=== PATIENT | female | born 1950 | race Caucasian/White ===

== ENCOUNTER 2018-08-13 19:32 | Inpatient (IN) | payer MEDICARE, MEDICAID ==
[~2018-08-13] VITALS: Ht 160 cm; Wt 112.9 kg
[2018-08-13] VITALS (10 sets, daily range): BP systolic 97–132; BP diastolic 72–96
[2018-08-13] MEDS ORDERED: CALCIUM CARBONATE 500 MG (TUMS) TAB.CHEW PO PRN (20:00)
[2018-08-13] MEDS ORDERED: ONDANSETRON 4 MG/2 ML (SDV) Z0FRAN IVP PRN (20:00)
[2018-08-13] MEDS ORDERED: RX-TRAMADOL 50 MG (ULTRAM) TAB PPK#4 PO PRN (20:00)
[2018-08-13] MEDS ORDERED: diphenhydrAMINE 25 MG TAB (BENADRYL) PO PRN (20:00)
[2018-08-13] MEDS ORDERED: fentaNYL INJECTION 100 MCG/2 ML AMP IVP PRN (20:00)
[2018-08-13] MEDS ORDERED: KCL 20 MEQ TAB (K-DUR) PO ONE (20:00)
[2018-08-13] MEDS ORDERED: ACETAMINOPHEN 500 MG TAB (TYLENOL) PO PRN (20:00)
[2018-08-13] MEDS ORDERED: ALPRAZolam 0.25 MG (XANAX) TAB PO PRN (20:00)
[2018-08-13] MEDS ORDERED: ENOXAPARIN 100 MG/1 ML (LOVENOX) SYR SC SCH (20:00)
[2018-08-13] MEDS ORDERED: DOCUSATE SODIUM 100 MG (COLACE) CAP PO PRN (20:00)
[2018-08-13] MEDS ORDERED: HYDROcodone/APAP 5 MG/325 MG (LORTAB) TAB PO PRN (20:00)
[2018-08-13] MEDS ORDERED: LOPERAMIDE 2 MG (IMODIUM) CAP PO PRN (20:00)
[2018-08-13] MEDS ORDERED: FUROSEMIDE 40 MG/4 ML INJ (LASIX) IVP ONE (20:00)
[2018-08-13] MEDS ORDERED: MELATONIN 3 MG TABLET PO PRN (20:00)
--- OUTSIDE RECORDS SUMMARY | 2018-08-13 20:56 | XMS REPORT ---
Author Author Mike Dodge [facility] Address [address] [place], [place] [address] Care Team Providers Care Dinkey Engine Mechanic Name Role Phone Mike Dodge PCP Allergies and Adverse Reactions Name Reaction Notes No known allergies Plan of Treatment Planned Activity Comments Planned Date Planned Time Plan/Goal CT LUMBAR W/O CONTRAST 01/10/2017 12:00 AM Medications Active Name Start Date Estimated Completion Date SIG Comments tramadol 50 mg oral tablet take 1 tablet (50 mg) by oral route every 6 hours as needed alendronate 35 mg oral tablet take 1 tablet (35 mg) by oral route once weekly in the morning, at least 30 min before first food, beverage, or medication of day allopurinol 300 mg oral tablet take 0.5 tablet by oral route 2 times a day metoprolol succinate 50 mg oral tablet extended release 24 hr take 2 tablets (100 mg) by oral route once daily lisinopril-hydrochlorothiazide 20-25 mg oral tablet take 1 tablet by oral route once daily citalopram 40 mg oral tablet take 1 tablet (40 mg) by oral route once daily Aspir-81 81 mg oral tablet,delayed release (DR/EC) take 2 tablets by oral route daily Calcium 600 600 mg calcium (1,500 mg) oral tablet take 1 tablet by oral route daily multivitamin oral tablet take 1 tablet by oral route daily gabapentin 300 mg oral capsule take 1 capsule by oral route 2 times a day Discontinued Name Start Date Discontinued Date SIG Comments gabapentin oral 01/10/2017 Problem List Not available. Vital Signs Date Time BP-Sys(mm[Hg] BP-Magui(mm[Hg]) HR(bpm) RR(rpm) Temp WT HT HC BMI BSA BMI Percentile O2 Sat(%) 01/10/2017 3:23:00 PM 136 mmHg 82 mmHg 76 bpm 16 rpm 98.9 F 95 % Social History Name Description Comments Uses seatbelts Tobacco Unknown if ever smoked Alcohol Current some day History of Procedures Not available. Results Summary Not available. History Of Immunizations Not available. History of Past Illness Name Date of Onset Comments Radiculopathy- RT L4 Jan 10 2017 3:37PM Lumbar radiculopathy Jan 10 2017 3:23PM Payers Insurance Name Company Name Plan Name Plan Number Policy Number Policy Group Number Start Date Medicare Part B Medicare Of [place] [id number] N/A [facility] Plan of [id number] N/A History of Encounters Visit Date Visit Type Provider 01/10/2017 Office visit Mike Dodge MD
--- OUTSIDE RECORDS SUMMARY | 2018-08-13 20:56 | XMS REPORT ---
Author Author Mike Dodge [facility] Address [address] [place], [place] [address] Care Team Providers Care Security Dispatcher Name Role Phone Mike Dodge PCP Allergies [...] first food, beverage, or medication of day gabapentin oral allopurinol 300 mg oral tablet take 0.5 [...] take 1 tablet by oral route daily Problem List Not available. Vital Signs Date [...] Date of Onset Comments Radiculopathy- RT L4 El 9 2017 3:37PM Payers Insurance Name Company Name Plan Name Plan Number Policy Number Policy Group Number Start Date Medicare Part B Medicare Of [place] [id number] N/A [facility] Plan of [id number] N/A History of Encounters Visit Date Visit Type Provider 01/10/2017 Office visit Mike Dodge MD
--- OUTSIDE RECORDS SUMMARY | 2018-08-13 20:56 | XMS REPORT | Continuity of Care Document ---
Author Author [facility] Organization [facility] Address [facility] [address] [place] [address] Phone Unavailable Support Name Relationship Address Phone Dionte Wang D.O. Caregiver [address] [place] [address] VIRGEN RAMOS MD Caregiver [address] [place] [phone] Unavailable LYNN GIBBONS Next Of Kin [address] [place] [address] CELL Insurance Providers Payer Name Policy Number Subscriber Name Relationship Medicare [id number] Leigha Stephen 18 Self / Same As Patient [facility] [id number] Leigha Stephen 18 Self / Same As Patient Advance Directives Directive Response Recorded Date/Time Do you have an Advanced Directive? No 04/29/00 10:07am Advance Directives No 04/30/16 6:42pm Living Will No 04/30/16 6:42pm Health Care Proxy No 04/30/16 6:42pm Power of Split Leather Mosser for Health Care No 04/30/16 6:42pm Organ, Tissue, or Eye Donor No 04/30/16 6:42pm Do you have a signed organ donor card? No 04/29/00 10:07am Chief Complaint and Reason for Visit Chief Complaint MULTIPLE RIB FRACTURES Reason for Visit Multiple fractures of ribs of left side Problems Active Problems Medical Problem Onset Date Status Multiple fractures of ribs of left side Unknown Acute Medications Current Home Medications Medication Dose Units Route Directions Days/Qty Instructions Start Date Citalopram Hydrobromide 40 Mg 1 Tab Oral Daily 11/26/10 Calcium Carbonate/Vitamin D3* 1 Each 1 Tab Oral Daily 11/26/10 Multivitamins/Minerals 1 Ea 1 Tab Oral Daily 11/26/10 Aspirin 81 Mg 2 Tab Oral Daily 11/26/10 Alendronate Sodium 70 Mg 35 Mg Oral Weekly 11/26/10 Hctz/Lisinopril 1 Each 1 Each Oral Daily 08/07/12 Metoprolol Tartrate 50 Mg 50 Mg Oral Bedtime 08/07/12 Metoprolol Tartrate 50 Mg 50 Mg Oral Daily 08/07/12 Docusate Sodium 100 Mg 100 Mg Oral Daily 05/01/16 Gabapentin 100 Mg 100 Mg Oral Bedtime 30 05/01/16 Tramadol Hcl 50 Mg 100 Mg Oral Twice Daily As Needed 15 05/01/16 Hydrocodone/Acetaminophen 1 Each 1 Tab Oral Every 4-6 Hrs As Needed Pain as needed for Pain 05/02/16 Gabapentin 100 Mg 200 Mg Oral Bedtime 05/02/16 Past Home Medications Medication Directions Ordered Status Meloxicam 15 Mg Tablet, 1 Tab Oral Daily 11/26/10 Discontinued [Estroblend] , 1 Tab Oral Daily 11/26/10 Discontinued [Lisinop/Hctz] , 1 Tab Oral Daily 11/26/10 Discontinued Calcium Polycarbophil 625 Mg Tab, 2 Tab Oral Daily 11/26/10 Discontinued Pravastatin Sodium 20 Mg Tablet, 1 Tab Oral Daily 11/26/10 Discontinued Fluticasone Propionate 50 Mcg/Disk W Disk.w.dev, 1 Puff Inhalation Daily 28/06 Discontinued Social History Social History Problem Response Recorded Date/Time Smoking Status Former smoker 04/30/2016 6:42pm Alcohol Use none 04/30/2016 2:37pm Drug Use none 04/30/2016 2:37pm Query Response Start Date Stop Date Smoking Status Former smoker Hospital Discharge Instructions Discharge Instructions Nursing Instructions Flu Vaccine Received this Visit: No Pneumonia Vaccine Received this Visit: No Education #1 Topic: rib fx Methods: Discussion Printed Material Provided: yes Response: Verbalize understanding Recipient: Patient Patient specific education materials provided?: Yes Patient Request Electronic Discharge Instructions: No Patient Received Electronic Discharge Instructions: Yes Patient Health Summary printed/downloaded for the patient?: Yes Provider Discharge Instruction Make Appointment with:: Dr. Wang [phone] Other: FOLLOW UP APPOINTMENT THURSDAY 05/10 AT 2:45 Plan of Care Discharge Date 05/02/16 11:08am Disposition 01 HOME, INTERMEDIATE,ASSISTED LIVING Prescriptions See Medication Section Care Plan and Goals See Discharge Instructions Section Functional Status Query Response Date Recorded Janina Coma Scale Total 15 May 02, 2016 8:33am Patient Behavior Appropriate Cooperative May 02, 2016 8:33am Allergies, Adverse Reactions, Alerts Allergen Type Severity Reaction Status Last Updated NO KNOWN DRUG ALLERGIES Allergy Unknown Active 04/30/16 Immunizations Name Given Type Hx Diphtheria, Pertussis, Tetanus Vaccination Up To Date Historical Hx Influenza Vaccination No Historical Hx Pneumococcal Vaccination Yes Historical Vital Signs Acute Vital Signs Vital Response Date/Time Temperature (Fahrenheit) 97.3 degrees F (97.6 - 99.5) 05/02/2016 5:30am Temperature Source Temporal Artery 05/02/2016 5:30am Pulse Rate (adult) 63 bpm (60 - 90) 05/02/2016 5:30am Respiratory Rate 20 bpm (12 - 24) 05/02/2016 5:30am Blood Pressure 130/62 mm Hg 05/02/2016 5:30am O2 Sat by Pulse Oximetry 94 % (90 - 100) 05/02/2016 6:46am Oxygen Delivery Method 04/30/2016 5:45pm Oxygen Flow Rate 1.0 L/min 05/01/2016 11:15pm Pain Intensity 8 04/30/2016 6:42pm Pain Intensity 5 05/01/2016 8:45am Pain Location Body Site Modifier Right 05/28/2016 11:50am Pain Description 05/02/2016 5:19am Height 5 ft 2 in Weight 222 lb Body Mass Index 40.0 kg/m^2 Results Pending Laboratory Results Test Name Collection Date/Time Procedures Procedure Status Date Provider(s) CHEST X-RAY 1 VIEW FRONTAL Completed 04/30/16 CHEST X-RAY 2VW FRONTAL&LATL Completed 04/30/16 CT THORAX W/DYE Completed 04/30/16 METABOLIC PANEL TOTAL CA Completed 04/30/16 METABOLIC PANEL TOTAL CA Completed 04/30/16 COMPLETE CBC AUTOMATED Completed 04/30/16 COMPLETE CBC AUTOMATED Completed 04/30/16 ELECTROCARDIOGRAM TRACING Completed 04/30/16 ELECTROCARDIOGRAM TRACING Completed 04/30/16 MEASURE BLOOD OXYGEN LEVEL Completed 04/30/16 MEASURE BLOOD OXYGEN LEVEL Completed 04/30/16 MEASURE BLOOD OXYGEN LEVEL Completed 04/30/16 MEASURE BLOOD OXYGEN LEVEL Completed 04/30/16 MEASURE BLOOD OXYGEN LEVEL Completed 04/30/16 MEASURE BLOOD OXYGEN LEVEL Completed 04/30/16 MEASURE BLOOD OXYGEN LEVEL Completed 04/30/16 MEASURE BLOOD OXYGEN LEVEL Completed 04/30/16 MEASURE BLOOD OXYGEN LEVEL Completed 04/30/16 HYDRATE IV INFUSION ADD-ON Completed 04/30/16 THER/PROPH/DIAG INJ IV PUSH Completed 04/30/16 PT EVALUATION Completed 04/30/16 GAIT TRAINING THERAPY Completed 04/30/16 EMERGENCY DEPT VISIT Completed 04/30/16 HYDROMORPHONE INJECTION Completed 04/30/16 NORMAL SALINE SOLUTION INFUS Completed 04/30/16 LOCM 300-399MG/ML IODINE,1ML Completed 04/30/16 X-ray of chest, single view Active 04/30/[address] chest w contrast Active 04/30/16 VIRGEN RAMOS MD X-ray of chest, PA and lateral views Active 04/30/16 Dionte Wang D.O. Encounters Encounter Location Arrival/Admit Date Discharge/Depart Date Attending Provider Discharged Inpatient (obs) [place] 04/30/16 6:21pm 05/02/16 11:08am Dionte Wang D.O. Discharged Recurring [place] 04/15/16 3:59pm 05/28/16 11:08am HUGO RONDON Recent Diagnosis Multiple fractures of ribs of left side
--- OUTSIDE RECORDS SUMMARY | 2018-08-13 20:56 | XMS REPORT | Continuity of Care Document ---
Author Author [facility] Address Unknown Phone Unavailable Allergies There is no data. Medications There is no data. Problems There is no data. Procedures There is no data. Results There is no data. Encounters ACCT No. Visit Date/Time Discharge Status Pt. Type Provider Facility Loc./Unit Complaint [id number] 01/10/2017 14:35:35 01/10/2017 23:59:59 CLS Outpatient Mike Dodge
--- OUTSIDE RECORDS SUMMARY | 2018-08-13 20:56 | XMS REPORT | Continuity of Care Document ---
Author Author [facility] Organization [facility] Address [facility] [address] [place] [address] Phone Unavailable Support Name Relationship Address Phone COTY CRAIN MD Caregiver [address] [place] [address] DELTA SOW MD Caregiver [address] [place] [address] Unavailable DELTA SOW MD Caregiver [address] [place] [address] Unavailable LYNN GIBBONS Next Of Kin [address] [place] [address] CELL Insurance Providers Guarantor Leigha Stephen Address [address] [place] [address] [facility] Policy Number [id number] Subscriber's Name Alma Stephenhlbrie Aguirre Relationship 18 Self / Same As Patient Effective Date 12 Payer Medicare Policy Number [id number] Subscriber's Name Leigha Stephen Relationship 18 Self / Same As Patient Advance Directives Directive Response Recorded Date/Time Do you have an Advanced Directive? No 04/29/00 10:07am Advance Directives No 07/22/17 5:44pm Living Will No 07/22/17 5:44pm Health Care Proxy No 07/22/17 5:44pm Power of Physician Executive for Health Care No 07/22/17 5:44pm Organ, Tissue, or Eye Donor No 07/22/17 5:44pm Do you have a signed organ donor card? No 04/29/00 10:07am Problems Medical Problem Onset Date Status Multiple fractures of ribs of left side Unknown Acute Medications Current Home Medications Medication Dose Units Route Directions Days Qty Instructions Start Date Acetaminophen (Tylenol 500 Mg Tab*) 500 Mg Tablet 1,000 Mg ORAL Every 4-6 Hours Albuterol (Proair 17GM Hfa Inhaler*) 1 Puff Inh 2 Puff Inhalation Three Times Daily As Needed as needed for Wheezing 1 Inhaler INHALE 2 PUFFS Allopurinol (Allopurinol 300 Mg Tab*) 300 Mg Tablet 150 Mg ORAL Daily 15 Milligram Aspirin (Children's Aspirin 81 Mg*) 81 Mg Tablet.dr 2 Tab ORAL Daily Calcium Carbonate/Vitamin D3* (Calcium 600 + D Caplet*) 1 Each Tablet 1 Tab ORAL Twice A Day Citalopram Hydrobromide (Celexa 40 Mg Tab*) 40 Mg Tablet 1 Tab ORAL Daily Docusate Sodium (Colace 100 Mg Cap*) 100 Mg Capsule 200 Mg ORAL As Needed 30 Cap Gabapentin (Neurontin 100 Mg Cap*) 100 Mg Capsule 200 Mg ORAL Bedtime 30 Cap Lisinopril (Prinivil 40 Mg Tab*) 40 Mg Tablet 40 Mg ORAL Daily 30 Tablet 07/23/17 Loperamide Hcl (Imodium A-D) 2 Mg Capsule 2 Cap ORAL As Needed 2 CAPS PO AFTER 1ST LOOSE BM AND 1 AFTER EACH SUBSEEQUENT Loratadine (Claritin 10 Mg Tab*) 10 Mg Tablet 10 Mg ORAL Daily 30 Tablet Metoprolol Tartrate (Lopressor 50 Mg Tab) 50 Mg Tablet 50 Mg ORAL Bedtime Metoprolol Tartrate (Lopressor 50 Mg Tab) 50 Mg Tablet 50 Mg ORAL Daily Multivitamins/Minerals (Centrum) 1 Ea Tab 1 Tab ORAL Daily Naproxen Sodium (Aleve 220 Mg Tab*) 220 Mg Tablet 220 Mg ORAL Twice Daily As Needed 60 Tablet Oxygen 2 L NASAL Promethazine Hcl (Phenergan) 25 Mg Supp.rect 1 Tab ORAL Every 6 Hours As Needed as needed for Nausea Risedronate Sodium (Risedronate Sodium Dr) 35 Mg Tablet.dr 35 Mg ORAL Weekly Tramadol Hcl (Ultram 50 Mg Tab*) 50 Mg Tablet 50 Mg ORAL Every 6 To 8 Hours As Needed 15 Tablet [id number] 1 Tab ORAL Three Times Daily As Needed Past Home Medications Medication Directions Ordered Status Alendronate Sodium (Fosamax 70 Mg Tab*) 70 Mg Tablet, 35 Mg Oral Weekly Discontinued Calcium Polycarbophil (Fibercon Tablets) 625 Mg Tab, 2 Tab Oral Daily Discontinued Estroblend , 1 Tab Oral Daily Discontinued Fluticasone Propionate (Flovent Diskus 50 Mcg) 50 Mcg/Disk W Disk.w.dev, 1 Puff Inhalation Daily Discontinued Gabapentin (Neurontin 100 Mg Cap*) 100 Mg Capsule, 100 Mg Oral Bedtime Discontinued Hctz/Lisinopril (Zestoretic 20-25 Mg Tablet) 1 Each Tablet, 1 Each Oral Daily Discontinued Hydrocodone/Acetaminophen (Lortab 7.5-325 Mg Tablet) 1 Each Tablet, 1 Tab Oral Every 4-6 Hrs As Needed Pain as needed for Pain Discontinued Lisinop/Hctz , 1 Tab Oral Daily Discontinued Lisinopril/Hydrochlorothiazide (Zestoretic 20-12.5 Mg Tablet) 1 Each Tablet, 1 Tab Oral Daily Discontinued Meloxicam (Mobic 15 Mg Tab*) 15 Mg Tablet, 1 Tab Oral Daily Discontinued Pravastatin Sodium (Pravachol 20 Mg Tab*) 20 Mg Tablet, 1 Tab Oral Daily Discontinued Social History Social History Problem Response Recorded Date/Time Onset Date Status Smoking Status Former smoker 07/22/2017 5:44pm Not Applicable Not Applicable Smoking Status Start Date Stop Date Former smoker Hospital Discharge Instructions No hospital discharge instruction information available. Plan of Care Discharge Date 07/23/17 3:15pm Disposition 01 HOME, USP,ASSISTED LIVING Instructions/Education Provided Hypoxia (GEN) Prescriptions See Medication Section Functional Status Query Response Date Recorded Hartley Coma Scale Total 15 July 23, 2017 7:42am Patient Behavior Appropriate Cooperative July 23, 2017 7:42am Allergies, Adverse Reactions, Alerts Allergen Type Severity Reaction Status Last Updated NO KNOWN DRUG ALLERGIES Allergy Unknown Active 04/30/16 Immunizations Query Response on File Recorded Date/Time Hx Diphtheria, Pertussis, Tetanus Vaccination Up To Date 04/30/16 2:05pm Hx Influenza Vaccination - 201607/22/17 5:44pm Hx Pneumococcal Vaccination Yes 07/22/17 5:44pm Vital Signs Acute Vital Signs Vital Response Date/Time Temperature (Fahrenheit) 98.1 degrees F (97.6 - 99.5) 07/23/2017 2:10pm Temperature Source Oral 07/23/2017 2:10pm Pulse Rate (adult) 60 bpm (60 - 90) 07/23/2017 2:10pm Respiratory Rate 22 bpm (12 - 24) 07/23/2017 2:10pm Blood Pressure 126/83 mm Hg 07/23/2017 2:10pm O2 Sat by Pulse Oximetry 97 % (90 - 100) 07/23/2017 2:10pm Oxygen Flow Rate 2.0 L/min 07/23/2017 5:55am Pain Intensity 3 07/23/2017 9:15am Height 5 ft 4 in 07/22/2017 4:01pm Weight 229.06 lb 07/22/2017 4:01pm Body Mass Index 39.0 kg/m^2 07/22/2017 4:01pm Results Laboratory Results Test Name Result Units Flags Reference Collection Date/Time Result Date/ Time Comments B-Type Natriuretic Peptide 1157 pg/mL H 10-227 07/21/2017 12:44pm 2016 1:42pm 50-75 years of age NT-proBNP values <300 pg/mL have a 99% negative predictive value for excluding acute congestive heart failure (CHF). A cutoff of 1,200 pg/mL for patients with an eGFR <60 yields a diagnostic sensitivity and specificity of 89% and 72% for acute CHF. NT-proBNP values 900 pg/mL are consistent with CHF in adults 50-75 years of age in the absence of renal failure. White Blood Count 4.7 K/uL L 4.8-10.8 07/23/2017 5:10am 07/23/2017 6: 02am Red Blood Count 4.20 M/uL 4.20-5.40 07/23/2017 5:10am 07/23/2017 6: 02am Hemoglobin 13.7 gm/dL 12.0-16.0 07/23/2017 5:10am 07/23/2017 6:02am Hematocrit 45.7 % 37.0-47.0 07/23/2017 5:10am 07/23/2017 6:02am Mean Corpuscular Volume 108.8 fL H 81.0-99.0 07/23/2017 5:10am 2016 6:02am Mean Corpuscular Hemoglobin 32.6 pg H 27.0-31.0 07/23/2017 5:10am 2016 6:02am Mean Corpuscular Hemoglobin Concent 30.0 g/dL 30.0-37.0 07/23/2017 5: 10am 07/23/2017 6:02am Red Cell Distribution Width 14.7 % H 11.5-14.5 07/23/2017 5:10am 2016 6:02am Platelet Count 98 K/uL L 130-400 07/23/2017 5:07/23/2017 6:02am Mean Platelet Volume 8.9 fL 7.4-10.4 07/23/2017 5:07/23/2017 6: 02am Neutrophils (%) (Auto) 50.0 % 42.2-75.2 07/23/2017 5:07/23/2017 6: 02am Lymphocytes (%) (Auto) 34.2 % 20.5-51.1 07/23/2017 5:07/23/2017 6: 02am Monocytes (%) (Auto) 10.6 % H 1.7-9.3 07/23/2017 5:07/23/2017 6: 02am Eosinophils (%) (Auto) 4.3 % H 0-3 07/23/2017 5:07/23/2017 6:02am Basophils (%) (Auto) 0.9 % 0.0-1.0 07/23/2017 5:07/23/2017 6:02am Neutrophils # (Auto) 2.4 K/uL 2.0-6.9 07/23/2017 5:07/23/2017 6: 02am Lymphocytes # (Auto) 1.6 K/uL 1.2-3.4 07/23/2017 5:07/23/2017 6: 02am Monocytes # (Auto) 0.5 K/uL 0.1-0.6 07/23/2017 5:07/23/2017 6: 02am Eosinophils # (Auto) 0.2 K/uL 0.0-0.7 07/23/2017 5:07/23/2017 6: 02am Basophils # (Auto) 0.0 K/uL 0.0-0.2 07/23/2017 5:07/23/2017 6: 02am Random Glucose 96 mg/dL 70-110 07/23/2017 5:07/23/2017 6:19am Blood Urea Nitrogen 25 mg/dL H 7-18 07/23/2017 5:07/23/2017 6:19am Creatinine 0.9 mg/dL 0.55-1.02 07/23/2017 5:07/23/2017 6:19am Sodium Level 142 mEq/L 136-145 07/23/2017 5:07/23/2017 6:19am Potassium Level 3.8 mEq/L 3.5-5.0 07/23/2017 5:07/23/2017 6:19am Chloride Level 103 mEq/L 98-107 07/23/2017 5:07/23/2017 6:19am Carbon Dioxide Level 35.7 mEq/L H 21-32 07/23/2017 5:07/23/2017 6: 19am Calcium Level 8.9 mg/dL 8.8-10.5 07/23/2017 5:07/23/2017 6:19am Total Protein 6.4 gm/dL 6.4-8.2 07/23/2017 5:07/23/2017 6:19am Albumin 2.8 gm/dL L 3.4-5.0 07/23/2017 5:07/23/2017 6:19am Total Bilirubin 0.45 mg/dL 0.00-1.00 07/23/2017 5:07/23/2017 6: 19am Aspartate Amino Transf (AST/SGOT) 37 U/L 15-37 07/23/2017 5:2016 6:19am Alanine Aminotransferase (ALT/SGPT) 31 U/L 12-78 07/23/2017 5: 6:19am Total Alkaline Phosphatase 55 U/L 46-116 07/23/2017 5:07/23/2017 6 :19am Glomerular Filtration Rate Calc 62.6 mL/min 07/23/2017 5:2016 6:19am Procedures Procedure Status Date Provider(s) TTE WDOPPLER COMPLETE Completed 07/15/17 ROUTINE VENIPUNCTURE Completed 06/09/17 CHEST X-RAY 2VW FRONTAL&LATL Completed 06/09/17 METABOLIC PANEL TOTAL CA Completed 06/09/17 ASSAY OF NATRIURETIC PEPTIDE Completed 06/09/17 COMPLETE CBC AUTOMATED Completed 06/09/17 HT MUSCLE IMAGE SPECT MULT Completed 06/18/17 CARDIOVASCULAR STRESS TEST Completed 06/18/17 TC99M TETROFOSMIN Completed 06/18/17 REGADENOSON INJECTION Completed 06/18/17 ROUTINE VENIPUNCTURE Completed 07/21/17 METABOLIC PANEL TOTAL CA Completed 07/21/17 ASSAY OF NATRIURETIC PEPTIDE Completed 07/21/17 X-ray of chest, PA and lateral views Completed 06/09/17 DAKOTA AUGUSTINE Myocardial SPECT multiple studies Completed 06/18/17 DAKOTA AUGUSTINE Two dimensional echocardiography with M-mode and color flow imaging Completed 07/15/17 DAKOTA AUGUSTINE X-ray of chest, PA and lateral views Completed 07/22/[address] chest w contrast Completed 07/23/17 DELTA SOW MD Encounters Encounter Location Arrival/Admit Date Discharge/Depart Date Attending Provider Discharged Inpatient (obs) [place] 07/22/17 3:22pm 07/23/17 3:15pm DELTA SOW MD Registered [facility] 07/21/17 12:30pm DAKOTA AUGUSTINE Registered [facility] 07/15/17 9:26am DAKOTA AUGUSTINE Registered [facility] 06/18/17 7:14am DAKOTA AUGUSTINE Registered [facility] 06/09/17 2:33pm DAKOTA AUGUSTINE
--- OUTSIDE RECORDS SUMMARY | 2018-08-13 20:56 | XMS REPORT ---
Author Author Mike Dodge [facility] Address [address] [place], [place] [address] Care Team Providers Care Litigation Partner Name Role Phone Mike Dodge PCP Allergies [...] Date Medicare Part B Medicare Of [place] [id number] N/A [facility] Plan of [id number] N/A History of Encounters Visit Date Visit Type Provider 01/10/2017 Office visit Mike Dodge MD
--- OUTSIDE RECORDS SUMMARY | 2018-08-13 20:56 | XMS REPORT | Continuity of Care Document ---
Author Author [facility] Organization [facility] Address [facility] [address] [place] [address] Phone Unavailable Support Name Relationship Address Phone Dionte Wang D.O. Caregiver [address] [place] [address] VIRGEN RAMOS MD Caregiver [address] [place] [phone] Unavailable LYNN GIBBONS Next Of Kin [address] [place] [address] CELL Insurance Providers Payer Name Policy Number Subscriber Name Relationship Medicare [id number] Leigha Stephen 18 Self / Same As Patient [facility] [id number] Leigha Stephen 18 Self / Same As Patient Advance Directives Directive Response Recorded Date/Time Do you have an Advanced Directive? No 04/29/00 10:07am Advance Directives No 04/30/16 6:42pm Living Will No 04/30/16 6:42pm Health Care Proxy No 04/30/16 6:42pm Power of Fruit Or Nut Farmworker for Health Care No 04/30/16 6:42pm Organ, [...] Discharge Instruction Make Appointment with:: Dr. Wang [phone] Other: FOLLOW UP APPOINTMENT THURSDAY 05/10 AT 2:45 Plan of Care Discharge Date 05/02/16 11:08am Disposition 01 HOME, GROUP HOME,ASSISTED LIVING Prescriptions See Medication Section Care Plan [...] 05/01/2016 8:45am Pain Location Body Site Modifier Lateral 05/02/2016 8:33am Pain Description 05/02/2016 5:19am Height 5 ft 2 in Weight 222 lb Body Mass Index 40.0 kg/m^2 Results Pending Laboratory Results Test Name Collection Date/Time Procedures Procedure Status Date Provider(s) X-ray of chest, single view Active 04/30/[address] chest w contrast Completed 04/30/16 VIRGEN RAMOS MD X-ray of chest, PA and lateral views Active 04/30/16 Dionte Wang D.O. Encounters Encounter Location Arrival/Admit Date Discharge/Depart Date Attending Provider Discharged Inpatient [place] 04/30/16 6:21pm 05/02/16 11:08am Dionte Wang D.O. Registered Recurring [place] 04/15/16 3:59pm HUGO RONDON Recent Diagnosis Multiple fractures of ribs of left side
[2018-08-13] MEDS ORDERED: DILTIAZEM 125 MG/25 ML IV (CARDIZEM) IV ONE (21:14)
[2018-08-13] MEDS: GABAPENTIN 100 MG (NEURONTIN) CAP PO SCH (22:00)
[2018-08-13] MEDS: DILTIAZEM INJECTION 125 MG in NS (IVPB) 100 ML IV SCH ×2 (22:00→22:04)
[2018-08-13] MEDS: NS (IVPB) 100 ML ONE (22:06)
[2018-08-13] MEDS ORDERED: RT-ALBUTEROL SULF 2.5 MG/3 ML PRE-MIX VIAL INH PRN (22:30)
[2018-08-14] VITALS (57 sets, daily range): BP systolic 87–140; BP diastolic 41–109
[2018-08-14] MEDS: NS (IVPB) 100 ML ONE (01:57)
[2018-08-14] MEDS ORDERED: DIGOXIN 0.25 MG/ML (LANOXIN) 2 ML AMP ONE (03:30)
[2018-08-14] MEDS ORDERED: ALBUMIN 5% 12.5 GM/250 ML 250 ML IV ONE ×2 (03:30→04:45)
[2018-08-14] MEDS ORDERED: DIGOXIN 0.25 MG/ML (LANOXIN) 2 ML AMP IV ONE ×5 (03:45→12:00)
[2018-08-14 04:14] LABS: BASOPHILS % (AUTO) 1 % (0-10); EOSINOPHILS % (AUTO) 0 % (0-10); HEMATOCRIT 41 % (35-52); HEMOGLOBIN 12.8 G/DL (11.5-16.0); LYMPHOCYTES # (AUTO) 1.5 X 10^3 (1.0-4.0); LYMPHOCYTES % (AUTO) 23 % (12-44); MEAN CORPUSCULAR HEMOGLOBIN 34 PG (25-34); MEAN CORPUSCULAR HGB CONC 32 G/DL (32-36); MEAN CORPUSCULAR VOLUME 107 FL (80-99); MEAN PLATELET VOLUME 11.9 FL (7.4-10.4); MONOCYTES # (AUTO) 1.1 X 10^3 (0.0-1.0); MONOCYTES % (AUTO) 17 % (0-12); NEUTROPHILS # (AUTO) 3.7 X 10^3 (1.8-7.8); NEUTROPHILS % (AUTO) 59 % (42-75); PLATELET COUNT 119 10^3/uL (130-400); RED CELL DISTRIBUTION WIDTH 14.5 % (10.0-14.5); WHITE BLOOD COUNT 6.3 10^3/uL (4.3-11.0)
[2018-08-14 04:42] LABS: ALBUMIN 3.5 GM/DL (3.2-4.5); CALCIUM 9.5 MG/DL (8.5-10.1); CREATININE SERUM 1.08 MG/DL (0.60-1.30); MAGNESIUM 1.7 MG/DL (1.8-2.4); PHOSPHORUS 5.4 MG/DL (2.3-4.7); POTASSIUM 4.3 MMOL/L (3.6-5.0); TOTAL PROTEIN 6.5 GM/DL (6.4-8.2)
[2018-08-14] MEDS ORDERED: ENOXAPARIN 60 MG/0.6 ML (LOVENOX) SYR SC SCH (04:45)
--- NOTE | 2018-08-14 05:21 | NUR ---
0129 - Talked with EICU about the patient's low blood pressures. Cardizem drip turned down at this time and continue to monitor. 0330 - Discussed with EICU about the patient's rhythm not slowing down, blood pressure are better. Orders received. 0452 - EICU called and requested that the cardizem be turned back up to 5mg at this time.
[2018-08-14] MEDS: POTASSIUM CL 10MEQ/50ML IVPB 50 ML IV SCH (05:27)
[2018-08-14] MEDS: MAGNESIUM 1 GM/100 ML IVPB 100 ML IV SCH ×3 (05:28→06:11)
[2018-08-14] MEDS: KCL 20 MEQ TAB (K-DUR) PO SCH ×2 (05:28→06:28)
[2018-08-14] MEDS: MAGNESIUM 1 GM/100 ML IVPB IV SCH ×4 (06:21→09:46)
[2018-08-14] MEDS ORDERED: FUROSEMIDE 40 MG/4 ML INJ (LASIX) IVP SCH (07:00)
--- NOTE | 2018-08-14 07:11 | Diagnostic Imaging Report ---
Indication: Congestive heart failure Portable chest 3:54 AM There is cardiomegaly. There is central vascular congestion. There are postop changes from median sternotomy. There is dual-chamber pacemaker. Impression: Cardiomegaly with pulmonary venous congestion. Dictated by: Dictated on workstation # [id number]
--- NOTE | 2018-08-14 08:08 | Consultation-Cardiology ---
HPI-Cardiology Cardiology Consultation: Date of Consultation 08/14/18 Time Seen by a Provider: 07:35 Date of Admission Attending Physician Deanna Wright DO Admitting Physician Consulting Physician ANDRES CANO MD, MA, FACP, FACC, [facility], CCDS Physician requesting consult: Dr Wright HPI: Chief Complaint: Reason for consultation: A Fib with RVR, edema, h/o TOF repair HPI: 68 yo woman with depression and suicidal ideation seen in [place] ER for admission to [facility] and noted to have A Fib with RVR and gen edema. Was sent to this hosp for further eval. Reports chronic shortness of breath and chronically on supple oxygen. Notes some increase in shortness of breath lately. Had chronic leg swelling that has increased lately. Denies cp or palp or syncope. Reports a h/o A Fib and h/o pacemaker placement in [place] (either [place] or [place], according to her) Review of Systems-Cardiology Review of Systems Constitutional: malaise, tiredness; No weight loss, No weight gain Eyes: No vision change Ears/Nose/Throat: No ear discharge, No nasal drainage, No recent hearing loss Respiratory: As described under HPI Cardiovascular: As described under HPI Gastrointestinal: No constipation, No diarrhea, No nausea, No vomiting Genitourinary: No dysuria, No hematuria, No urine frequency changes Musculoskeletal: back pain (chornic) Skin: No rash, No ulcerations Psychiatric/Neurological: No seizure, No focal weakness, No syncope Hematologic: No bleeding abnormalities VUI-Hrdqgf-Mtkglx Hx Patient Social History Alcohol Use: Denies Use Recreational Drug Use: No Smoking Status: Never a Smoker Recent Foreign Travel: No Recent Infectious Disease Expo: No Hospitalization with Isolation: Denies Physical Abuse Screen: No Sexual Abuse: No Immunizations Up To Date Date of Pneumonia Vaccine: Aug 13, 2017 Date of Influenza Vaccine: Jun 13, 2018 Past Medical History PMH As described under Assessment. Family Medical History Family Medical History: Does not report fam h/o early CAD or SCD Allergies and Home Medications Allergies Coded Allergies: No Known Drug Allergies (Unverified , 08/13/18) Patient Home Medication List Home Medication List Reviewed: Yes Physical Exam-Cardiology Physical Exam Vital Signs/I&O 08/13/18 08/13/18 08/13/18 08/13/18 20:59 21:04 21:15 21:30 Pulse 115 127 142 129 Resp 12 24 B/P (MAP) 131/72 (91) 113/82 (92) 124/93 (103) Pulse Ox 94 98 99 O2 Delivery Nasal Cannula Nasal Cannula Nasal Cannula O2 Flow Rate 3.00 3.00 3.00 08/13/18 08/13/18 08/13/18 08/13/18 21:45 22:00 22:04 22:09 Temp 97.6 Pulse 118 134 112 Resp 05 19 19 B/P (MAP) 102/93 (96) 105/76 (86) 105/76 Pulse Ox 99 98 97 O2 Delivery Nasal Cannula Nasal Cannula Nasal Cannula Nasal Cannula O2 Flow Rate 3.00 3.00 3.00 3.00 08/13/18 08/13/18 08/13/18 08/13/18 22:09 22:15 22:30 22:45 Pulse 112 124 133 126 Resp 28 26 17 B/P (MAP) 118/93 (101) 132/82 (99) 97/77 (84) Pulse Ox 97 97 98 97 O2 Delivery Nasal Cannula Nasal Cannula Nasal Cannula O2 Flow Rate 3.00 3.00 3.00 08/13/18 08/14/18 08/14/18 08/14/18 23:00 00:00 00:02 00:30 Temp 97.4 Pulse 109 125 Resp 13 30 B/P (MAP) 116/96 (103) 124/83 (97) Pulse Ox 95 96 O2 Delivery Nasal Cannula Nasal Cannula NIV Bilevel O2 Flow Rate 3.00 3.00 08/14/18 08/14/18 08/14/18 08/14/18 00:30 01:00 01:00 02:00 Pulse 114 114 120 Resp 26 27 B/P (MAP) 101/49 (66) 123/109 (114) Pulse Ox 97 97 O2 Delivery Nasal Cannula Nasal Cannula Nasal Cannula O2 Flow Rate 3.00 3.00 3.00 08/14/18 08/14/18 08/14/18 08/14/18 03:00 04:00 04:38 04:38 Temp 96.4 Pulse 129 134 Resp 16 26 B/P (MAP) 103/60 (74) 127/63 (84) Pulse Ox 97 98 O2 Delivery Nasal Cannula Nasal Cannula Nasal Cannula O2 Flow Rate 3.00 3.00 1/11/19 08/14/18 08/14/18 08/14/18 05:00 06:00 07:30 07:33 Temp 96.9 Pulse 98 111 Resp 17 15 B/P (MAP) 109/60 (76) 102/59 (73) Pulse Ox 97 98 O2 Delivery Nasal Cannula Nasal Cannula Nasal Cannula O2 Flow Rate 3.00 3.00 3.00 08/14/18 00:00 Intake Total 50 ml Output Total 750 ml Balance -700 ml Capillary Refill : Constitutional: AAO x 3, well-developed, well-nourished HEENT: EOMI, hearing is well preserved; No xanthelasmas are seen Neck: No carotid bruit; carotid pulses are 2 + bilaterally, with good upstrokes Respiratory: No accessory muscle use; other (good bilat air entry, somewhat diminished at the bases) Cardiovascular: irregularly irregular, S1 and S2, systolic murmur (2/6 CHAYO at card base) Gastrointestinal: No tender; soft; No guarding, No rebound; audible bowel sounds Extremities: No clubbing, No cyanosis, No significant edema Neurologic/Psychiatric: oriented x 3, grossly intact, power is 5/5 both on sides Skin: No rash on exposed areas, No ulcerations on exposed areas Data Review Labs Laboratory Tests 08/14/18 03:30: White Blood Count 6.3, Red Blood Count 3.80L, Hemoglobin 12.8, Hematocrit 41, Mean Corpuscular Volume 107H, Mean Corpuscular Hemoglobin 34, Mean Corpuscular Hemoglobin Concent 32, Red Cell Distribution Width 14.5, Platelet Count 119L, Mean Platelet Volume 11.9H, Neutrophils (%) (Auto) 59, Lymphocytes (%) (Auto) 23 , Monocytes (%) (Auto) 17H, Eosinophils (%) (Auto) 0, Basophils (%) (Auto) 1, Neutrophils # (Auto) 3.7, Lymphocytes # (Auto) 1.5, Monocytes # (Auto) 1.1H, Eosinophils # (Auto) 0.0, Basophils # (Auto) 0.0, Sodium Level 144, Potassium Level 4.3, Chloride Level 100, Carbon Dioxide Level 32, Anion Gap 12, Blood Urea Nitrogen 42H, Creatinine 1.08, Estimat Glomerular Filtration Rate 51, BUN/ Creatinine Ratio 39, Glucose Level 108H, Calcium Level 9.5, Corrected Calcium 9.9, Phosphorus Level 5.4H, Magnesium Level 1.7L, Total Bilirubin 1.0, Aspartate Amino Transf (AST/SGOT) 45H, Alanine Aminotransferase (ALT/SGPT) 35, Alkaline Phosphatase 68, Total Protein 6.5, Albumin 3.5 Laboratory Tests 08/14/18 03:30 A/P-Cardiology Assessment/Admission Diagnosis Chronic A Fib with RVR H/o TOF repair in the 1970s at the [facility] (details unknown) H/o pacemaker placement in or around 2009 in [place] (followed by her software applications engineer in [place], [place]; last interrogated Jun 2018, next interrog Sep 2018) Ac on chronic CHF, probably diastolic Obesity with BMI approx 44 Chronic hypoxemia: prob obesity-hypovent. Has known MARILYNN that is treated with CPAP Depression Discussion and Recomendations * Obtain home med list * Obtain records from [place], if possible * Dilt for rate control * Apixaban for stroke prophylaxis * Diuretics for heart failure * Monitor labs * Echo * I discussed her case last night with her hospitalist, Dr Wright Clinical Quality Measures DVT/VTE Risk/Contraindication: Risk Factor Score Per Nursin RFS Level Per Nursing on Admit: 4+=Very High ANDRES CANO MD FACP FAC CCDS Aug 14, 2018 08:08
[2018-08-14] MEDS ORDERED: DILTIAZEM 180 MG (CARDIZEM CD) CAP PO ONE (08:30)
[2018-08-14] MEDS ORDERED: ASPIRIN 325 MG (5 GR) TABLET PO SCH (09:00)
[2018-08-14] MEDS ORDERED: ASPIRIN E.C. 81 MG (ECOTRIN) TAB PO ONE (09:20)
[2018-08-14] MEDS: DILTIAZEM 180 MG (CARDIZEM CD) CAP PO SCH (09:25)
[2018-08-14] MEDS ORDERED: DOCU-143 PO (09:38)
[2018-08-14] MEDS ORDERED: BUSP5TAB59 PO (09:38)
[2018-08-14] MEDS ORDERED: FURO20TA4 PO (09:38)
[2018-08-14] MEDS ORDERED: NAPR220T66 PO (09:38)
[2018-08-14] MEDS ORDERED: CALC1TAB PO (09:38)
[2018-08-14] MEDS ORDERED: TRAM-42 PO (09:38)
[2018-08-14] MEDS ORDERED: LISI40TA PO (09:38)
[2018-08-14] MEDS ORDERED: METO-451 PO (09:38)
[2018-08-14] MEDS ORDERED: ASPI-983 PO (09:38)
[2018-08-14] MEDS ORDERED: ACT35T PO (09:38)
[2018-08-14] MEDS ORDERED: ACET-2267 PO (09:38)
[2018-08-14] MEDS ORDERED: PROM25TA14 PO (09:38)
[2018-08-14] MEDS ORDERED: GABA-486 PO (09:38)
[2018-08-14] MEDS ORDERED: POLY17PO6 PO (09:38)
[2018-08-14] MEDS ORDERED: POTA10CA43 PO (09:38)
[2018-08-14] MEDS ORDERED: MULT-351 PO (09:38)
[2018-08-14] MEDS ORDERED: LOPE-145 PO (09:38)
[2018-08-14] MEDS ORDERED: CALC500T7 PO (09:38)
[2018-08-14] MEDS ORDERED: RT-ALBUINH IH (09:38)
[2018-08-14] MEDS ORDERED: ALLO300T2 PO (09:38)
[2018-08-14] MEDS ORDERED: DULO30CA3 PO (09:38)
--- NOTE | 2018-08-14 09:50 | NUR ---
UPDATED MED REC WITH MAR FROM [facility].
--- NOTE | 2018-08-14 10:52 | History & Physical-Hospitalist ---
History of Present Illness HPI/Chief Complaint CC: Atrial fibrillation with rapid ventricular response with volume overload HPI: This is a 68-year-old white female who was on track for admission to [facility] behavioral health last evening but when she presented to the ER for medical screening she was found to have heart rate of 150 with atrial fibrillation with rapid ventricular response and a known history of paroxysmal atrial fibrillation along with repair of tetralogy of fallot in 1971 with anasarca noted an elevated BNP and hypoxia prompting cardiology evaluation and management transferred to [facility] ICU. Dr. Nunez to see the patient in consultation and recommended placement of Eliquis for anticoagulation for stroke prophylaxis and maintained on Cardizem drip that has been since converted to oral Cardizem along with oral Lasix after IV Lasix with successful and diuresis. She does have dementia and she denied any history of suicidal ideation statements but she changes her story is quite frequently due to dementia. Bettina Zavala is her primary care provider in [place]. Exam Limitations: other (dementia) Date Seen 08/14/18 Time Seen by a Provider: 10:00 Attending Physician Deanna Wood DO PCP Referring Physician Date of Admission Aug 13, 2018 at 20:50 Home Medications & Allergies Home Medications Reviewed patient Home Medication Reconciliation performed by pharmacy medication reconciliations electrical equipment technician and/or nursing. Patients Allergies have been reviewed. Allergies Allergies Coded Allergies No Known Drug Allergies (Unverified08/13/18) Past Tacomtq-Akqzuc-Dyrwwv Hx Past Med/Social Hx: Reviewed Nursing Past Med/Soc Hx, Reviewed and Corrections made Patient Social History Marrital Status: Employed/Student: retired Alcohol Use: Denies Use Recreational Drug Use: No Smoking Status: Never a Smoker Physical Abuse Screen: No Sexual Abuse: No Recent Foreign Travel: No Recent Hopitalizations: No Recent Infectious Disease Expo: No Immunizations Up To Date Date of Pneumonia Vaccine: Aug 13, 2017 Date of Influenza Vaccine: Jun 13, 2018 Seasonal Allergies Seasonal Allergies: No Past Medical History Surgeries: Cardiac Respiratory: Sleep Apnea Currently Using CPAP: Yes Currently Using BIPAP: No Cardiac: Atrial Fibrillation, High Cholesterol, Hypertension Neurological: Dementia Sexually Transmitted Disease: No Female Reproductive Disorders: Denies Gastrointestinal: Chronic Constipation Musculoskeletal: Arthritis, Gout HEENT: Cataract Loss of Vision: Denies Hearing Impairment: Denies Psychosocial: Depression History of Blood Disorders: No Adverse Reaction to Blood Ocampo: No Review of Systems Constitutional: see HPI, weakness EENTM: no symptoms reported Respiratory: dyspnea on exertion, short of breath Cardiovascular: palpitations Gastrointestinal: no symptoms reported Genitourinary: no symptoms reported Musculoskeletal: no symptoms reported Skin: no symptoms reported Psychiatric/Neurological: Depressed All Other Systems Reviewed Negative Unless Noted: Yes Physical Exam Physical Exam Vital Signs Vital Signs - First Documented 08/13/18 08/13/18 08/13/18 20:59 21:15 22:04 Temp 97.6 Pulse 115 Resp 12 B/P (MAP) 131/72 (91) Pulse Ox 94 O2 Delivery Nasal Cannula O2 Flow Rate 3.00 Capillary Refill : Height, Weight, BMI Height: 5'3.00" Weight: 248lbs. 2.0oz. [id number]; 44.0 BMI Method: General Appearance: No Apparent Distress, WD/WN, Chronically ill, Obese Eyes: Bilateral Eye Normal Inspection, Bilateral Eye PERRL HEENT: PERRL/EOMI, Normal ENT Inspection, Pharynx Normal Neck: Full Range of Motion, Normal Inspection, Non Tender, Supple, Carotid Bruit Respiratory: Chest Non Tender, Normal Breath Sounds, No Accessory Muscle Use, No Respiratory Distress, Decreased Breath Sounds Cardiovascular: No Edema, No Gallop, No JVD, Normal Peripheral Pulses, Systolic Murmur, Irregularly Irregular, Tachycardia Gastrointestinal: Normal Bowel Sounds, No Organomegaly, No Pulsatile Mass, Non Tender, Soft Back: Normal Inspection, No CVA Tenderness, No Vertebral Tenderness Extremity: Normal Capillary Refill, Normal Inspection, Normal Range of Motion, Non Tender, No Calf Tenderness, No Pedal Edema Neurologic/Psychiatric: Alert, No Motor/Sensory Deficits, Normal Mood/Affect, Disoriented Skin: Normal Color, Warm/Dry Lymphatic: No Adenopathy Results Results/Procedures Labs Laboratory Tests 08/14/18 03:30 Patient resulted labs reviewed. Assessment/Plan Admission Diagnosis Assessment: Atrial fibrillation with rapid ventricular response Volume overload placed on IV Lasix Known history of paroxysmal atrial fibrillation Hypertension Obstructive sleep apnea Dementia Depression Suicidal ideation prompting Maura psych admission Plan Transfer to fourth floor Appreciate cardiology recommendations Anticoagulation Diuresis with by mouth Lasix Monitor closely Maura psych admission once medically stable Admission Status: Inpatient Order (span 2 midnights) Reason for Inpatient Admission: Atrial fibrillation with rapid ventricular response with volume overload will require cardiology consultation of 3 days of hospital stay Diagnosis/Problems Diagnosis/Problems (1) Atrial fibrillation with rapid ventricular response Status: Acute (2) Volume overload Status: Acute (3) Obstructive sleep apnea on CPAP Status: Chronic (4) Obesity Status: Chronic Qualifiers: Obesity type: due to excess calories Obesity classification: adult class 3 (BMI >= 40) Body mass index: BMI 40.0-44.9 (5) Dementia Status: Chronic Qualifiers: Dementia type: Alzheimer's disease Alzheimer's disease onset: unspecified onset Dementia behavioral disturbance: with behavioral disturbance Qualified Codes: G30.9 - Alzheimer's disease, unspecified; F02.81 - Dementia in other diseases classified elsewhere with behavioral disturbance (6) Depression Status: Acute Qualifiers: Depression Type: unspecified Qualified Codes: F32.9 - Major depressive disorder, single episode, unspecified (7) History of permanent cardiac pacemaker placement Status: Chronic (8) Requires supplemental oxygen Status: Chronic Clinical Quality Measures DVT/VTE Risk/Contraindication: Risk Factor Score Per Nursin RFS Level Per Nursing on Admit: 4+=Very High DEANNA WOOD DO Aug 14, 2018 10:52
[2018-08-14] MEDS: FUROSEMIDE 40 MG (LASIX) TAB PO SCH (17:02)
[2018-08-14] MEDS: APIXABAN 5 MG (ELIQUIS) TABLET PO SCH ×2 (19:13→19:46)
--- NOTE | 2018-08-14 19:46 | NUR ---
2100 Eliquis non administered d/t being given at 1912 by day shift.
[2018-08-14] MEDS: GABAPENTIN 100 MG (NEURONTIN) CAP PO SCH (20:57)
[2018-08-15] VITALS (18 sets, daily range): BP systolic 90–125; BP diastolic 26–77
[2018-08-15 03:48] LABS: BASOPHILS % (AUTO) 1 % (0-10); EOSINOPHILS # (AUTO) 0.1 10^3/uL (0.0-0.3); EOSINOPHILS % (AUTO) 1 % (0-10); HEMATOCRIT 40 % (35-52); HEMOGLOBIN 12.9 G/DL (11.5-16.0); LYMPHOCYTES # (AUTO) 1.2 X 10^3 (1.0-4.0); LYMPHOCYTES % (AUTO) 22 % (12-44); MEAN CORPUSCULAR HEMOGLOBIN 35 PG (25-34); MEAN CORPUSCULAR HGB CONC 32 G/DL (32-36); MEAN CORPUSCULAR VOLUME 108 FL (80-99); MEAN PLATELET VOLUME 11.2 FL (7.4-10.4); MONOCYTES # (AUTO) 0.9 X 10^3 (0.0-1.0); MONOCYTES % (AUTO) 15 % (0-12); NEUTROPHILS # (AUTO) 3.4 X 10^3 (1.8-7.8); NEUTROPHILS % (AUTO) 61 % (42-75); PLATELET COUNT 109 10^3/uL (130-400); RED BLOOD COUNT 3.73 10^6/uL (4.35-5.85); RED CELL DISTRIBUTION WIDTH 14.5 % (10.0-14.5); WHITE BLOOD COUNT 5.6 10^3/uL (4.3-11.0)
[2018-08-15 04:04] LABS: CALCIUM 8.5 MG/DL (8.5-10.1); CREATININE SERUM 1.02 MG/DL (0.60-1.30); PHOSPHORUS 4.5 MG/DL (2.3-4.7); POTASSIUM 4.2 MMOL/L (3.6-5.0)
[2018-08-15] MEDS: KCL 20 MEQ TAB (K-DUR) PO SCH ×2 (04:38→06:22)
[2018-08-15] MEDS: POTASSIUM CL 10MEQ/50ML IVPB 50 ML IV SCH (04:38)
[2018-08-15] MEDS: MAGNESIUM 1 GM/100 ML IVPB 100 ML IV SCH (04:38)
--- NOTE | 2018-08-15 05:32 | Pulmonary Consultation ---
History of Present Illness History of Present Illness Date of Consultation 08/14/18 05:26 Late note today is 08/15/18 Time Seen by Provider: 05:27 Date of Admission History of Present Illness 68yo with hx of dementia, paroxysmal Afib transferred here from [facility] secondary to afib rvr 150 directly admitted to ICU and placed on Cardizem gtt. She does have hx of Afib. Pt has also had worsening SOB. No CP, or syncope.PT is requiring 2 liters of oxygen currently secondary to pulmonary edema. I am consulted for ICU/pulmonary management. Allergies and Home Medications Allergies Coded Allergies: No Known Drug Allergies (Unverified , 08/13/18) Home Medications Acetaminophen 500 Mg Tablet, 1,000 MG PO Q4H PRN for PAIN-MILD, (Reported) Albuterol Sulfate 1 Puff Puff, 2 PUFF IH TID PRN for SHORTNESS OF BREATH, ( Reported) Allopurinol 300 Mg Tablet, 150 MG PO DAILY, (Reported) Aspirin 81 Mg Tablet.dr, 162 MG PO DAILY, (Reported) Buspirone HCl 5 Mg Tablet, 5 MG PO BID, (Reported) Calcium Carbonate 200 Mg Tab.chew, 200 MG PO TID PRN for HEARTBURN, (Reported) Calcium Carbonate/Vitamin D3 1 Each Tablet, 1 TAB PO BID, (Reported) Docusate Sodium 100 Mg Capsule, 200 MG PO DAILY PRN for CONSTIPATION-1ST LINE, ( Reported) Duloxetine HCl 30 Mg Capsule.dr, 30 MG PO 2000, (Reported) Furosemide 20 Mg Tablet, 20 MG PO Q48H, (Reported) Gabapentin 100 Mg Capsule, 200 MG PO 2000, (Reported) Lisinopril 40 Mg Tablet, 40 MG PO DAILY, (Reported) Loperamide HCl 2 Mg Capsule, PO UD PRN for DIARRHEA, (Reported) TAKE 2 CAPLETS AFTER 1ST LOOSE BM AND 1 AFTER EACH SUBSEQUENT Metoprolol Tartrate 50 Mg Tablet, 50 MG PO BID, (Reported) Multivitamin 1 Each Tablet, 1 TAB PO DAILY, (Reported) Naproxen Sodium 220 Mg Tablet, 220 MG PO BID PRN for PAIN-MILD, (Reported) Polyethylene Glycol 3350 17 Gm Powd.pack, 17 GM PO UD PRN for CONSTIPATION-2ND LINE, (Reported) Potassium Chloride 10 Meq Capsule.er, 10 MEQ PO Q48H, (Reported) Promethazine HCl 25 Mg Tablet, 25 MG PO Q6H PRN for NAUSEA/VOMITING-2ND LINE, ( Reported) Risedronate 35 Mg Tab, 35 MG PO We, (Reported) Tramadol HCl 50 Mg Tablet, 50 MG PO EVERY 6-8 HOURS PRN for PAIN-MODERATE, ( Reported) Past Njjlcyv-Gswvsi-Hvrzip Hx Past Med/Social Hx: Reviewed Nursing Past Med/Soc Hx, Reviewed and Corrections made Patient Social History Alcohol Use: Denies Use Recreational Drug Use: No Smoking Status: Never a Smoker Recent Foreign Travel: No Recent Infectious Disease Expo: No Recent Hopitalizations: No Immunizations Up To Date Date of Pneumonia Vaccine: Aug 13, 2017 Date of Influenza Vaccine: Jun 13, 2018 Seasonal Allergies Seasonal Allergies: No Past Medical History Surgeries: Yes Cardiac Respiratory: Yes Sleep Apnea Currently Using CPAP: Yes Currently Using BIPAP: No Cardiac: Yes (fallot tetralogy - repaird in 1975) Atrial Fibrillation, High Cholesterol, Hypertension Dementia : No Female Reproductive Disorders: Denies Sexually Transmitted Disease: No Genitourinary: No Gastrointestinal: No Chronic Constipation Musculoskeletal: Yes (fractured ribs) Arthritis, Gout Endocrine: No HEENT: No (wears glasses) Cataract Loss of Vision: Denies Hearing Impairment: Denies Cancer: No Psychosocial: Yes Depression Integumentary: No Blood Disorders: No Adverse Reaction/Blood Tranf: No Review of Systems Time Seen by Provider: 05:41 Constitutional: Sweats, Weakness, Malaise; No: Fever, Chills, Other Eyes: No: Pain, Vision change, Conjunctivae inflammation, Eyelid inflammation, Other, Redness ENT: No: Ear pain, Ear discharge, Nose pain, Nose discharge, Nose congestion, Mouth pain, Mouth swelling, Throat pain, Throat swelling, Other Respiratory: Cough, Dry, Shortness of breath, SOB with excertion, Wheezing; No : Hemoptysis Cardiovascular: Palpitations, Orthopnea, Paroxysmal Noc. Dyspnea Gastrointestinal: No: Nausea, Vomiting, Abdominal Pain, Diarrhea, Constipation , Melena, Hematochezia, Other Genitourinary: No Dysuria, No Frequency, No Incontinence, No Hematuria, No Retention, No Other Neurological: Weakness Sepsis Event Evaluation Height, Weight, BMI Height: 5'3.00" Weight: 248lbs. 2.0oz. [id number]; 44.0 BMI Method: Exam Exam Vital Signs Date Time Temp Pulse Resp B/P (MAP) Pulse Ox O2 Delivery O2 Flow Rate FiO2 08/15/18 05:00 99 16 113/58 (76) 96 Nasal Cannula 3.00 08/15/18 04:05 95 Nasal Cannula 3.00 08/15/18 04:00 89 28 98/72 (81) 96 Nasal Cannula 3.00 08/15/18 03:00 80 17 105/35 (58) 95 Nasal Cannula 3.00 08/15/18 02:00 103 14 108/77 (87) 94 Nasal Cannula 3.00 08/15/18 01:00 88 21 99/26 (50) 95 Nasal Cannula 3.00 08/15/18 01:00 88 08/15/18 00:00 86 27 109/50 (69) 96 Nasal Cannula 3.00 08/14/18 23:45 98.0 Nasal Cannula 3.00 08/14/18 23:20 96 Nasal Cannula 3.00 08/14/18 23:00 92 25 110/53 (72) 97 Nasal Cannula 3.00 08/14/18 22:00 91 26 114/56 (75) 97 Nasal Cannula 08/14/18 21:00 92 24 120/51 (74) 97 Nasal Cannula 3.00 08/14/18 21:00 93 22 120/51 (74) 98 Nasal Cannula 3.00 08/14/18 20:00 90 22 122/64 (83) 98 Nasal Cannula 3.00 08/14/18 19:51 98 Nasal Cannula 3.00 08/14/18 19:40 99 Nasal Cannula 3.00 08/14/18 19:30 97.7 84 12 128/52 (77) 99 Nasal Cannula 3.00 08/14/18 19:00 100 08/14/18 18:45 85 15 130/64 (86) 98 Nasal Cannula 5.00 08/14/18 18:30 88 23 125/72 (89) 99 Nasal Cannula 5.00 08/14/18 18:15 118 20 109/64 (79) 90 Nasal Cannula 5.00 08/14/18 18:00 100 17 116/51 (72) 89 Nasal Cannula 5.00 08/14/18 17:45 97 17 124/59 (80) 97 Nasal Cannula 5.00 08/14/18 17:30 77 14 109/73 (85) 98 Nasal Cannula 5.00 08/14/18 17:15 88 16 109/68 (82) 99 Nasal Cannula 5.00 08/14/18 17:00 88 105/51 (69) 98 Nasal Cannula 5.00 08/14/18 16:45 96 30 103/58 (73) 97 Nasal Cannula 5.00 08/14/18 16:30 92 38 103/48 (66) 97 Nasal Cannula 5.00 08/14/18 16:15 92 100/74 (83) 96 Nasal Cannula 5.00 08/14/18 16:00 92 116/59 (78) 96 Nasal Cannula 5.00 08/14/18 16:00 Nasal Cannula 5.00 08/14/18 15:45 71 24 101/48 (65) 97 Nasal Cannula 5.00 08/14/18 15:30 68 14 115/46 (69) 99 Nasal Cannula 5.00 08/14/18 15:15 81 28 87/41 (56) 96 Nasal Cannula 5.00 08/14/18 15:00 98 28 102/58 (73) 98 Nasal Cannula 5.00 08/14/18 14:45 79 22 111/48 (69) 97 Nasal Cannula 5.00 08/14/18 14:30 81 23 108/45 (66) 97 Nasal Cannula 5.00 08/14/18 14:15 91 13 101/51 (68) 98 Nasal Cannula 5.00 08/14/18 14:00 96 20 101/46 (64) 98 Nasal Cannula 5.00 08/14/18 13:45 82 23 101/46 (64) 97 Nasal Cannula 5.00 08/14/18 13:30 115 31 100/51 (67) 98 Nasal Cannula 5.00 08/14/18 13:15 114 36 94/47 (63) 94 Nasal Cannula 5.00 08/14/18 13:00 97 36 130/57 (81) 95 Nasal Cannula 5.00 08/14/18 13:00 108 08/14/18 12:45 109 20 140/61 (87) 95 Nasal Cannula 5.00 08/14/18 12:30 85 21 113/70 (84) 95 Nasal Cannula 5.00 08/14/18 12:15 103 18 115/66 (82) 96 Nasal Cannula 5.00 08/14/18 12:00 Nasal Cannula 3.00 08/14/18 12:00 92 16 108/67 (81) 98 Nasal Cannula 5.00 08/14/18 11:45 120 38 87/53 (64) 95 Nasal Cannula 3.00 08/14/18 11:30 90 25 115/41 (65) 93 Nasal Cannula 3.00 08/14/18 11:15 79 13 100/56 (71) 97 Nasal Cannula 3.00 08/14/18 11:00 88 30 117/49 (71) 97 Nasal Cannula 3.00 08/14/18 10:45 92 24 100/57 (71) 97 Nasal Cannula 3.00 08/14/18 10:30 105 21 116/49 (71) 96 Nasal Cannula 3.00 08/14/18 10:15 86 14 107/70 (82) 96 Nasal Cannula 3.00 08/14/18 10:00 95 20 112/63 (79) 95 Nasal Cannula 3.00 08/14/18 09:45 100 28 104/70 (81) 93 Nasal Cannula 3.00 08/14/18 09:30 97 22 104/55 (71) 97 Nasal Cannula 3.00 08/14/18 09:15 93 32 111/50 (70) 91 Nasal Cannula 3.00 08/14/18 09:00 101 25 100/62 (75) 94 Nasal Cannula 3.00 08/14/18 08:45 110 20 106/60 (75) 97 Nasal Cannula 3.00 08/14/18 08:30 96 14 95/92 (93) 97 Nasal Cannula 3.00 08/14/18 08:15 109 11 110/55 (73) 97 Nasal Cannula 3.00 08/14/18 08:00 105 14 109/68 (82) 98 Nasal Cannula 3.00 08/14/18 07:33 Nasal Cannula 3.00 08/14/18 07:30 96.9 08/14/18 07:00 103 08/14/18 07:00 103 12 96/57 (70) 97 Nasal Cannula 3.00 08/14/18 06:00 111 15 102/59 (73) 98 Nasal Cannula 3.00 I & O 08/15/18 07:00 Intake Total 1470 ml Output Total 2050 ml Balance -580 ml Height & Weight Height: 5'3.00" Weight: 248lbs. 2.0oz. [id number]; 44.0 BMI Method: General Appearance: No Apparent Distress, WD/WN, Chronically ill, Obese HEENT: PERRL/EOMI, Normal ENT Inspection, Pharynx Normal Neck: Full Range of Motion, Normal Inspection, Non Tender, Supple, Carotid Bruit Respiratory: Chest Non Tender, Normal Breath Sounds, No Accessory Muscle Use, No Respiratory Distress, Decreased Breath Sounds Cardiovascular: No Edema, No Gallop, No JVD, Normal Peripheral Pulses, Systolic Murmur, Irregularly Irregular, Tachycardia Capillary Refill: Less Than 3 Seconds Extremity: Normal Capillary Refill, Normal Inspection, Normal Range of Motion, Non Tender, No Calf Tenderness, No Pedal Edema Neurologic/Psychiatric: Alert, No Motor/Sensory Deficits, Normal Mood/Affect, Disoriented Skin: Normal Color, Warm/Dry Lymphatic: No Adenopathy Results Lab Laboratory Tests 08/14/18 03:30 08/15/18 03:05 Assessment/Plan Assessment/Plan Afib with RVR -Cardizem gtt -Cardiology consulted Chronic CHF with pulmonary edema -Cont Lasix -echo is pending mild Hypotension -monitor for now MARILYNN -CPAP therapy Obesity Dementia Depression SHAHANA GIPSON DO Aug 15, 2018 05:32
--- NOTE | 2018-08-15 05:46 | Pulmonary Progress Note ---
Subjective Time Seen by a Provider: 05:45 Subjective/Events-last exam PT is now off cardizem gtt and only requiring 3 liters of oxygen. Sepsis Event Evaluation Height, Weight, BMI Height: 5'3.00" Weight: 248lbs. 2.0oz. 112.045265se; 44.0 BMI Method: Exam Exam Vital Signs Date Time Temp Pulse Resp B/P (MAP) Pulse Ox O2 Delivery O2 Flow Rate FiO2 08/15/18 05:00 99 16 113/58 (76) 96 Nasal Cannula 3.00 08/15/18 04:05 95 Nasal Cannula 3.00 08/15/18 04:00 89 28 98/72 (81) 96 Nasal Cannula 3.00 08/15/18 03:00 80 17 105/35 (58) 95 Nasal Cannula 3.00 08/15/18 02:00 103 14 108/77 (87) 94 Nasal Cannula 3.00 08/15/18 01:00 88 21 99/26 (50) 95 Nasal Cannula 3.00 08/15/18 01:00 88 08/15/18 00:00 86 27 109/50 (69) 96 Nasal Cannula 3.00 08/14/18 23:45 98.0 Nasal Cannula 3.00 08/14/18 23:20 96 Nasal Cannula 3.00 08/14/18 23:00 92 25 110/53 (72) 97 Nasal Cannula 3.00 08/14/18 22:00 91 26 114/56 (75) 97 Nasal Cannula 08/14/18 21:00 92 24 120/51 (74) 97 Nasal Cannula 3.00 08/14/18 21:00 93 22 120/51 (74) 98 Nasal Cannula 3.00 08/14/18 20:00 90 22 122/64 (83) 98 Nasal Cannula 3.00 08/14/18 19:51 98 Nasal Cannula 3.00 08/14/18 19:40 99 Nasal Cannula 3.00 08/14/18 19:30 97.7 84 12 128/52 (77) 99 Nasal Cannula 3.00 08/14/18 19:00 100 08/14/18 18:45 85 15 130/64 (86) 98 Nasal Cannula 5.00 08/14/18 18:30 88 23 125/72 (89) 99 Nasal Cannula 5.00 08/14/18 18:15 118 20 109/64 (79) 90 Nasal Cannula 5.00 08/14/18 18:00 100 17 116/51 (72) 89 Nasal Cannula 5.00 08/14/18 17:45 97 17 124/59 (80) 97 Nasal Cannula 5.00 08/14/18 17:30 77 14 109/73 (85) 98 Nasal Cannula 5.00 08/14/18 17:15 88 16 109/68 (82) 99 Nasal Cannula 5.00 08/14/18 17:00 88 105/51 (69) 98 Nasal Cannula 5.00 08/14/18 16:45 96 30 103/58 (73) 97 Nasal Cannula 5.00 08/14/18 16:30 92 38 103/48 (66) 97 Nasal Cannula 5.00 08/14/18 16:15 92 100/74 (83) 96 Nasal Cannula 5.00 08/14/18 16:00 92 116/59 (78) 96 Nasal Cannula 5.00 08/14/18 16:00 Nasal Cannula 5.00 08/14/18 15:45 71 24 101/48 (65) 97 Nasal Cannula 5.00 08/14/18 15:30 68 14 115/46 (69) 99 Nasal Cannula 5.00 08/14/18 15:15 81 28 87/41 (56) 96 Nasal Cannula 5.00 08/14/18 15:00 98 28 102/58 (73) 98 Nasal Cannula 5.00 08/14/18 14:45 79 22 111/48 (69) 97 Nasal Cannula 5.00 08/14/18 14:30 81 23 108/45 (66) 97 Nasal Cannula 5.00 08/14/18 14:15 91 13 101/51 (68) 98 Nasal Cannula 5.00 08/14/18 14:00 96 20 101/46 (64) 98 Nasal Cannula 5.00 08/14/18 13:45 82 23 101/46 (64) 97 Nasal Cannula 5.00 08/14/18 13:30 115 31 100/51 (67) 98 Nasal Cannula 5.00 08/14/18 13:15 114 36 94/47 (63) 94 Nasal Cannula 5.00 08/14/18 13:00 97 36 130/57 (81) 95 Nasal Cannula 5.00 08/14/18 13:00 108 08/14/18 12:45 109 20 140/61 (87) 95 Nasal Cannula 5.00 08/14/18 12:30 85 21 113/70 (84) 95 Nasal Cannula 5.00 08/14/18 12:15 103 18 115/66 (82) 96 Nasal Cannula 5.00 08/14/18 12:00 Nasal Cannula 3.00 08/14/18 12:00 92 16 108/67 (81) 98 Nasal Cannula 5.00 08/14/18 11:45 120 38 87/53 (64) 95 Nasal Cannula 3.00 08/14/18 11:30 90 25 115/41 (65) 93 Nasal Cannula 3.00 08/14/18 11:15 79 13 100/56 (71) 97 Nasal Cannula 3.00 08/14/18 11:00 88 30 117/49 (71) 97 Nasal Cannula 3.00 08/14/18 10:45 92 24 100/57 (71) 97 Nasal Cannula 3.00 08/14/18 10:30 105 21 116/49 (71) 96 Nasal Cannula 3.00 08/14/18 10:15 86 14 107/70 (82) 96 Nasal Cannula 3.00 08/14/18 10:00 95 20 112/63 (79) 95 Nasal Cannula 3.00 08/14/18 09:45 100 28 104/70 (81) 93 Nasal Cannula 3.00 08/14/18 09:30 97 22 104/55 (71) 97 Nasal Cannula 3.00 08/14/18 09:15 93 32 111/50 (70) 91 Nasal Cannula 3.00 08/14/18 09:00 101 25 100/62 (75) 94 Nasal Cannula 3.00 08/14/18 08:45 110 20 106/60 (75) 97 Nasal Cannula 3.00 08/14/18 08:30 96 14 95/92 (93) 97 Nasal Cannula 3.00 08/14/18 08:15 109 11 110/55 (73) 97 Nasal Cannula 3.00 08/14/18 08:00 105 14 109/68 (82) 98 Nasal Cannula 3.00 08/14/18 07:33 Nasal Cannula 3.00 08/14/18 07:30 96.9 08/14/18 07:00 103 08/14/18 07:00 103 12 96/57 (70) 97 Nasal Cannula 3.00 08/14/18 06:00 111 15 102/59 (73) 98 Nasal Cannula 3.00 I & O 08/15/18 07:00 Intake Total 1470 ml Output Total 2050 ml Balance -580 ml Height & Weight Height: 5'3.00" Weight: 248lbs. 2.0oz. 112.697217gu; 44.0 BMI Method: General Appearance: No Apparent Distress, WD/WN, Chronically ill, Obese HEENT: PERRL/EOMI, Normal ENT Inspection, Pharynx Normal Neck: Full Range of Motion, Normal Inspection, Non Tender, Supple, Carotid Bruit Respiratory: Chest Non Tender, Normal Breath Sounds, No Accessory Muscle Use, No Respiratory Distress, Decreased Breath Sounds Cardiovascular: No Edema, No Gallop, No JVD, Normal Peripheral Pulses, Systolic Murmur, Irregularly Irregular, Tachycardia Capillary Refill: Less Than 3 Seconds Extremity: Normal Capillary Refill, Normal Inspection, Normal Range of Motion, Non Tender, No Calf Tenderness, No Pedal Edema Neurologic/Psychiatric: Alert, No Motor/Sensory Deficits, Normal Mood/Affect, Disoriented Skin: Normal Color, Warm/Dry Lymphatic: No Adenopathy Results Lab Laboratory Tests 08/14/18 03:30 08/15/18 03:05 Assessment/Plan Assessment/Plan Afib with RVR -Cardizem gtt - currently off -Cardiology consulted Chronic CHF with pulmonary edema -Cont Lasix -echo is pending mild Hypotension - improved -monitor for now MARILYNN -CPAP therapy Obesity Dementia Depression PT is off cardizem gtt and doing better. Will transfer to 4th floor with tele and continue to monitor close. SHAHANA GIPSON DO Aug 15, 2018 05:46
[2018-08-15] MEDS: FUROSEMIDE 40 MG (LASIX) TAB PO SCH (06:22)
--- NOTE | 2018-08-15 08:56 | Diagnostic Imaging Report ---
INDICATION: Atrial fibrillation RVR, elevated BNP. EXAMINATION: Chest from 08/15/2018. COMPARISON: 08/14/2018. FINDINGS: Heart is prominent but stable. Pulmonary vasculature is congested. Bibasilar infiltrates noted with findings of edema throughout both lungs. Significant change is not appreciated in the mid and upper lungs but there is increasing infiltrate at the bases. Sternotomy wires and a right pacemaker stable. IMPRESSION: 1. Increasing infiltrates at the bases. The remaining chest is stable. Dictated by: Dictated on workstation # [id number]
[2018-08-15] MEDS ORDERED: ASPIRIN E.C. 81 MG (ECOTRIN) TAB PO SCH (09:00)
[2018-08-15] MEDS: APIXABAN 5 MG (ELIQUIS) TABLET PO SCH ×2 (09:34→20:50)
[2018-08-15] MEDS: DILTIAZEM 180 MG (CARDIZEM CD) CAP PO SCH (09:35)
--- NOTE | 2018-08-15 09:42 | Physical Therapy Evaluation ---
PT Evaluation-General Medical Diagnosis Admission Date Aug 13, 2018 at 20:50 Medical Diagnosis: atrial fibrillation with RVR Onset Date: Aug 13, 2018 Therapy Diagnosis Therapy Diagnosis: limited mobility Height/Weight Height (Feet): 5 Height (Inches): 3.00 Weight (Pounds): 246 Weight (Ounces): 1.0 Precautions Precautions/Isolations: Fall Prevention Weight Bear Status Right Lower Extremity: Right Full Weight Bearing Left Lower Extremity: Left Full Weight Bearing Referral Physician: Deanna Wright DO Reason for Referral: Evaluation/Treatment Medical History Pertinent Medical History: Atrial Fib, Dementia, HTN Additional Medical History tetrology of Fallot, sleep apnea with CPAP, hypercholesterolemia, depression Current History Admit due to A-fib. Reviewed History: Yes Social History Home: Assisted Living Prior/Core FIM Prior Level of Function Therapy Code Descriptions/Definitions Functional [place] Measure: 0=Not Assessed/NA 4=Minimal Assistance 1=Total Assistance 5=Supervision or Setup 2=Maximal Assistance 6=Modified [place] 3=Moderate Assistance 7=Complete [place] Therapy Quality Codes: 6 Independent with activity with or without an assistive device 5 Patient requires set up or clean up by helper. Patient completes activity by themselves 4 Supervision or touching assist (CGA). [place] provide cues , steadying assist 3 The helper provides less than half the effort to complete the activity 2 The helper provides more than half the effort to complete the activity 1 Dependent. The helper does all the effort to complete an activity 7 Patient refused to complete or attempt activity 9 The patient did not perform the activity before the current illness or injury 88 Not attempted due to Medical conditions or safety concerns Functional Abilities and Goals: Independent: Patient completed the activities by him/herself, with or without an assistive device, with no assistance from a helper. Needed Some Help: Patient needed partial assistance from another person to complete activities. Dependent: A helper completed the activities for the patient. Unknown: Not Applicable: Bed Mobility: 7 Transfers (B,C,W/C) (FIM): 6 Gait: 6 Indoor Mobility (Ambulation): Independent Stairs: Not Applicalbe Prior Devices Use: Walker Prior Device Use: 4 wheeled walker PT Evaluation-Current Subjective Pt notes that she is short of breath. Her O2 stayed in the low 90s throughout treatment. Pt/Family Goals Return home selene Objective Patient Orientation: Person, Place, Time, Situation Problem Solving: Fair Comprehension: 6 Expression: 6 Social Interaction: 6 Problem Solvin Attachments: Oxygen, Drummond Catheter, Other-See Comments instructor decorating, pulse ox, BP ROM/Strength ROM Upper Extremities WFL ROM Lower Extremities WFL Strength Upper Extremities WFL Strength Lower Extremities WFL Integumentary/Posture Bladder Incontinence: Drummond Cath Posture Slumped posture in standing and while seated. Neuromuscular (Tone, Coordination, Reflexes) Intact Sensory Vision: Wears Glasses Hearing: Functional Hand Dominance: Right Sensation Right Upper Extremit: Intact Sensation Left Upper Extremity: Intact Sensation Right Lower Extremit: Intact Sensation Left Lower Extremity: Intact Transfers Therapy Code Descriptions/Definitions Functional [place] Measure: 0=Not Assessed/NA 4=Minimal Assistance 1=Total Assistance 5=Supervision or Setup 2=Maximal Assistance 6=Modified [place] 3=Moderate Assistance 7=Complete [place] Transfers (B, C, W/C) (FIM): 5 Scootin Rollin Supine to/from Sit: 5 Sit to/from Stand: 5 Gait Mode of Locomotion: Walk Anticipated Mode of Locomotion: Walk Distance (FIM): 1=up to 49 ft Distance: 10ft Gait Level of Assist: 5 Gait Persons Needed: 1 Gait Assistive Device: FWW Comments/Gait Description Ambulation limited due to attachments. Balance Sitting Static: Good Sitting Dynamic: Good Standing Static: Good Standing Dynamic: Good Assessment/Needs Pt showed good stability during standing and ambulation. Limited activity due to attachments. Rehab Potential: Good PT Short Term Goals Short Term Goals Time Frame: Aug 22, 2018 Transfers (B,C,W/C) (FIM): 6 Gait (FIM): 6 Distance (FIM): 3=150 ft Gait Distance Comment: 150ft Gait Level of Assist: 6 Gait Assistive Device: Walker 4 Wheeled PT Plan Problem List Problem List: Activity Tolerance, Functional Strength, Safety, Gait, Transfer Treatment/Plan Treatment Plan: Continue Plan of Care Treatment Plan: Bed Mobility, Functional Activity Angela, Functional Strength, Gait, Safety, Therapeutic Exercise Treatment Duration: Aug 22, 2018 Frequency: 5 times per week Estimated Hrs Per Day: .25 hour per day Patient and/or Family Agrees t: Yes Time/GCodes Time In: 0835 Time Out: 0900 Total Billed Treatment Time: 25 Total Billed Treatment 1, maryanc 25 JUANPABLO LOAIZA PT Aug 15, 2018 09:42
[2018-08-15] MEDS ORDERED: CALCIUM CARBONATE 200 MG PO PRN (12:00)
[2018-08-15] MEDS ORDERED: POLYETHYLENE GLYCOL 17 GM (MIRALAX) PACK PO PRN (12:00)
[2018-08-15] MEDS ORDERED: FUROSEMIDE 20 MG (LASIX) TAB PO SCH (12:00)
[2018-08-15] MEDS ORDERED: DOCUSATE SODIUM 100 MG (COLACE) CAP PO PRN (12:00)
[2018-08-15] MEDS ORDERED: PROMETHAZINE 25 MG (PHENERGAN) TAB PO PRN (12:00)
[2018-08-15] MEDS ORDERED: LOPERAMIDE 2 MG (IMODIUM) CAP PO PRN (12:00)
[2018-08-15] MEDS ORDERED: RT-ALBUTEROL SULF 2.5 MG/3 ML PRE-MIX VIAL IH PRN (12:00)
[2018-08-15] MEDS ORDERED: NON-FORMULARY MEDICATION 1 EA EA (Acetaminophen (Tylenol Extra Strength) 1,000 MG) PO PRN (12:00)
[2018-08-15] MEDS ORDERED: KCL 10 MEQ TAB (MICRO K) PO SCH (12:00)
--- NOTE | 2018-08-15 12:03 | Progress Note-Hospitalist ---
Subjective HPI/CC On Admission Date Seen by Provider: Aug 15, 2018 Time Seen by Provider: 11:45 CC: Atrial fibrillation with rapid ventricular response with volume overload HPI: This is a 68-year-old white female who was on track for admission to [facility] behavioral health last evening but when she presented to the ER for medical screening she was found to have heart rate of 150 with atrial fibrillation with rapid ventricular response and a known history of paroxysmal atrial fibrillation along with repair of tetralogy of fallot in 1971 with anasarca noted an elevated BNP and hypoxia prompting cardiology evaluation and management transferred to [facility] ICU. Dr. Nunez to see the patient in consultation and recommended placement of Eliquis for anticoagulation for stroke prophylaxis and maintained on Cardizem drip that has been since converted to oral Cardizem along with oral Lasix after IV Lasix with successful and diuresis. She does have dementia and she denied any history of suicidal ideation statements but she changes her story is quite frequently due to dementia. Bettina Zavala is her primary care provider in [place] Subjective/Events-last exam Patient is doing well Severe dementia is noted more and more the more conversations I have with her Denied any suicidal ideation currently but with her dementia it appears that that is a major issue but will need a [facility] psych screen since it has been over 48 hours since the screen was initiated last week To the senior behavioral unit at [place] once discharged from [facility] likely Edema is much improved Patient very immobile on a chronic basis Maintain on oxygen 24/7 Needs a bowel movement she reports and she received prune juice We will transfer to fourth floor today Review of Systems General: Fatigue Cardiovascular: Edema Neurological: Confusion Objective Exam Vital Signs Vital Signs Date Time Temp Pulse Resp B/P (MAP) Pulse Ox O2 Delivery O2 Flow Rate FiO2 08/15/18 13:07 112 08/15/18 13:00 98.6 20 99/57 (71) 98 Nasal Cannula 3.00 Capillary Refill : Less Than 3 Seconds General Appearance: No Apparent Distress, WD/WN, Chronically ill, Obese Respiratory: Chest Non Tender, Lungs Clear, Normal Breath Sounds, No Accessory Muscle Use, No Respiratory Distress Cardiovascular: Regular Rate, Rhythm, No Edema, No Gallop, No JVD, Normal Peripheral Pulses, Systolic Murmur Neurologic/Psychiatric: Alert, No Motor/Sensory Deficits, Normal Mood/Affect, Disoriented Skin: Normal Color, Warm/Dry Results/Procedures Lab Laboratory Tests 08/15/18 03:05 Patient resulted labs reviewed. Assessment/Plan Assessment and Plan Assess & Plan/Chief Complaint Assessment: Atrial fibrillation with rapid ventricular response now rate controlled on PO meds Volume overload placed on IV Lasix then changed to PO Known history of paroxysmal atrial fibrillation Hypertension Obstructive sleep apnea Dementia Depression Suicidal ideation prompting [facility]a psych admission Plan Transfer to fourth floor Appreciate cardiology recommendations Anticoagulation? Diuresis with by mouth Lasix Monitor closely Maura psych admission once medically stable Diagnosis/Problems Diagnosis/Problems (1) Atrial fibrillation with rapid ventricular response Status: Resolved Resolution Date/Time: 08/15/18 @ 15:25 (2) Volume overload Status: Acute (3) Obstructive sleep apnea on CPAP Status: Chronic (4) Obesity Status: Chronic Qualifiers: Obesity type: due to excess calories Obesity classification: adult class 3 (BMI >= 40) Body mass index: BMI 40.0-44.9 (5) Dementia Status: Chronic Qualifiers: Dementia type: Alzheimer's disease Alzheimer's disease onset: unspecified onset Dementia behavioral disturbance: with behavioral disturbance Qualified Codes: G30.9 - Alzheimer's disease, unspecified; F02.81 - Dementia in other diseases classified elsewhere with behavioral disturbance (6) Depression Status: Acute Qualifiers: Depression Type: unspecified Qualified Codes: F32.9 - Major depressive disorder, single episode, unspecified (7) History of permanent cardiac pacemaker placement Status: Chronic (8) Requires supplemental oxygen Status: Chronic (9) Suicide ideation Status: Acute (10) Thrombocytopenia Status: Chronic (11) Hypomagnesemia Status: Acute Clinical Quality Measures DVT/VTE Risk/Contraindication: Risk Factor Score Per Nursin RFS Level Per Nursing on Admit: 4+=Very High RODRIGO WOOD DO Aug 15, 2018 12:03
[2018-08-15] MEDS ORDERED: ACETAMINOPHEN 500 MG TAB (TYLENOL) PO PRN (12:15)
[2018-08-15] MEDS ORDERED: lisINopril 40 MG (PRINIVIL) TABLET PO SCH (12:20)
[2018-08-15] MEDS: ALLOPURINOL 100 MG (ZYLOPRIM) TAB PO SCH (12:31)
[2018-08-15] MEDS: MULTIVIT W/MINERALS TAB (THERAGRAN M) PO SCH (12:33)
[2018-08-15] MEDS ORDERED: NAPROXEN 250 MG (NAPROSYN) TABLET PO PRN (13:00)
--- NOTE | 2018-08-15 13:00 | NUR ---
REPORT RECEIVED FROM KAVYA PLASTIC SURGEON NURSE, ALERT, CALL LIGHT WITHIN REACH, DENIES PAIN OR SOB, ALEXIS PATENT WITH CLEAR YELLOW URINE, O2 ON PER NC AT 5 L, DENIES PAIN OR SOB, SALINE LOCK WITHOUT REDNESS OR SWELLING IN RIGHT HAND AND LEFT HAND, SCD'S APPLIED, LOWER LEGS EDEMATOUS, HEELS ELEVATED OFF BED
--- NOTE | 2018-08-15 15:20 | Progress Note-Cardiology ---
Cardiology SOAP Progress Note Subjective: No cp or palp or syncope or shortness of breath Objective: I&O/Vital Signs 08/15/18 08/15/18 08/15/18 08/15/18 04:00 04:05 05:00 06:00 Pulse 89 99 116 Resp 28 16 15 B/P (MAP) 98/72 (81) 113/58 (76) 102/42 (62) Pulse Ox 96 95 96 96 O2 Delivery Nasal Cannula Nasal Cannula Nasal Cannula Nasal Cannula O2 Flow Rate 3.00 3.00 3.00 3.00 08/15/18 08/15/18 08/15/18 08/15/18 07:00 07:09 07:45 08:00 Pulse 108 121 Resp 18 B/P (MAP) 92/50 (64) Pulse Ox 97 98 95 O2 Delivery Nasal Cannula Nasal Cannula Nasal Cannula O2 Flow Rate 3.00 3.00 3.00 08/15/18 08/15/18 08/15/18 08/15/18 08:00 09:00 10:00 11:00 Pulse 105 109 101 121 Resp 18 19 19 11 B/P (MAP) 111/40 (63) 103/42 (62) 118/64 (82) 125/71 (89) Pulse Ox 97 93 97 97 O2 Delivery Nasal Cannula Nasal Cannula Nasal Cannula Nasal Cannula O2 Flow Rate 3.00 3.00 3.00 3.00 08/15/18 08/15/18 08/15/18 08/15/18 12:00 12:00 13:00 13:07 Temp 98.6 Pulse 96 101 112 Resp 19 20 B/P (MAP) 125/49 (74) 99/57 (71) Pulse Ox 96 98 98 O2 Delivery Nasal Cannula Nasal Cannula Nasal Cannula O2 Flow Rate 3.00 5.00 3.00 08/15/18 00:00 Intake Total 570 ml Output Total 1250 ml Balance -680 ml Weight (Pounds): 246 Weight (Ounces): 1.0 Weight (Calculated Kilograms): 111.813689 Constitutional: AAO x 3, well-developed, well-nourished Respiratory: No accessory muscle use; other (good bilat air entry, somewhat diminished at the bases) Cardiovascular: irregularly irregular, S1 and S2, systolic murmur (2/6 CHAYO at card base) Gastrointestional: No tender; soft; No guarding, No rebound; audible bowel sounds Extremities: No clubbing, No cyanosis, No significant edema Neurologic/Psychiatric: oriented x 3, grossly intact, power is 5/5 both on sides Skin: No rash on exposed areas, No ulcerations on exposed areas Results/Procedures: Labs Laboratory Tests 08/15/18 03:05: White Blood Count 5.6, Red Blood Count 3.73L, Hemoglobin 12.9, Hematocrit 40, Mean Corpuscular Volume 108H, Mean Corpuscular Hemoglobin 35H, Mean Corpuscular Hemoglobin Concent 32, Red Cell Distribution Width 14.5, Platelet Count 109L, Mean Platelet Volume 11.2H, Neutrophils (%) (Auto) 61, Lymphocytes (%) (Auto) 22 , Monocytes (%) (Auto) 15H, Eosinophils (%) (Auto) 1, Basophils (%) (Auto) 1, Neutrophils # (Auto) 3.4, Lymphocytes # (Auto) 1.2, Monocytes # (Auto) 0.9, Eosinophils # (Auto) 0.1, Basophils # (Auto) 0.0, Sodium Level 144, Potassium Level 4.2, Chloride Level 98, Carbon Dioxide Level 34H, Anion Gap 12, Blood Urea Nitrogen 36H, Creatinine 1.02, Estimat Glomerular Filtration Rate 54, BUN/ Creatinine Ratio 35, Glucose Level 97, Calcium Level 8.5, Phosphorus Level 4.5, Magnesium Level 2.0 Laboratory Tests 08/14/18 03:30 08/15/18 03:05 A/P: Assessment: Chronic A Fib with RVR, better controlled after addition of long-acting CCB to her chronic regimen of beta-blockers H/o TOF repair in the 1970s at the [facility] (details unknown) H/o pacemaker placement in or around 2009 in [place] (followed by her executive assistant in [place], [place]; last interrogated Jun 2018, next interrog Sep 2018) Pulmonary hypertension. Echo of 08/15/18 shows PASP 55 mmHg Ac on chronic CHF, diastolic. Echo of 08/15/18 shows LVEF 60-65% Obesity with BMI approx 44 Chronic hypoxemia: prob obesity-hypovent. Has known MARILYNN that is treated with CPAP Depression Plan: * Echo results noted above * D/c lisinopril to allow more room in bp. KIMI-inhib/ARB are not mandatory because LVEF is normal * We reviewed her CV issues with her and answered questions * We reviewed the rationale of med changes, including the addition of OAC * I discussed her case with Dr Wright yesterday ANDRES CANO MD FACP FAC CCDS Aug 15, 2018 15:20
[2018-08-15] MEDS ORDERED: GABAPENTIN 100 MG (NEURONTIN) CAP PO SCH (20:00)
[2018-08-15] MEDS: DULoxetine 30 MG (CYMBALTA) CAP PO SCH (20:48)
[2018-08-15] MEDS: GABAPENTIN 100 MG (NEURONTIN) CAP PO SCH (20:49)
[2018-08-15] MEDS: busPIRone 5 MG (BUSPAR) TAB PO SCH (20:51)
[2018-08-15] MEDS: meTOprolol TARTRATE 50 MG (LOPRESSOR) TAB PO SCH (20:51)
[2018-08-15] MEDS ORDERED: CALCIUM CARB + VIT D 600 MG (CALCARB + D) TAB PO SCH (21:00)
[2018-08-16 08:00] VITALS: BP 100/54
[2018-08-16] MEDS: APIXABAN 5 MG (ELIQUIS) TABLET PO SCH ×2 (08:47→22:07)
[2018-08-16] MEDS: MULTIVIT W/MINERALS TAB (THERAGRAN M) PO SCH (08:47)
[2018-08-16] MEDS: meTOprolol TARTRATE 50 MG (LOPRESSOR) TAB PO SCH ×2 (08:47→21:00)
[2018-08-16] MEDS: ASPIRIN E.C. 81 MG (ECOTRIN) TAB PO SCH (08:49)
[2018-08-16] MEDS: ALLOPURINOL 100 MG (ZYLOPRIM) TAB PO SCH (08:50)
[2018-08-16] MEDS: CALCIUM CARB + VIT D 600 MG (CALCARB + D) TAB PO SCH ×2 (08:51→22:07)
[2018-08-16] MEDS: DILTIAZEM 180 MG (CARDIZEM CD) CAP PO SCH (08:51)
[2018-08-16] MEDS: busPIRone 5 MG (BUSPAR) TAB PO SCH ×2 (08:52→22:08)
--- NOTE | 2018-08-16 12:00 | NUR ---
URINE OUTPUT 75ML THIS SHIFT, ALEXIS FLUSHED WITHOUT DIFFICULTY WITH 30ML STERILE WATER, IVERSON NOTIFIED
--- NOTE | 2018-08-16 12:27 | Progress Note-Cardiology ---
Cardiology SOAP Progress Note Subjective: No cp or palp or syncope or shortness of breath Objective: I&O/Vital Signs 08/16/18 08/16/18 08/16/18 01:00 07:10 09:00 Pulse 69 69 Pulse Ox 95 O2 Delivery Nasal Cannula O2 Flow Rate 3.00 08/16/18 00:00 Intake Total 350 ml Output Total 325 ml Balance 25 ml Weight (Pounds): 250 Weight (Ounces): 4.0 Weight (Calculated Kilograms): 113.915037 Constitutional: AAO x 3, well-developed, well-nourished Respiratory: No accessory muscle use; other (good bilat air entry, somewhat diminished at the bases) Cardiovascular: irregularly irregular, S1 and S2, systolic murmur (2/6 CHAYO at card base) Gastrointestional: No tender; soft; No guarding, No rebound; audible bowel sounds Extremities: No clubbing, No cyanosis, No significant edema Neurologic/Psychiatric: oriented x 3, grossly intact, power is 5/5 both on sides Skin: No rash on exposed areas, No ulcerations on exposed areas Results/Procedures: Labs Laboratory Tests 08/15/18 16:11: Glucometer 162H Microbiology 08/13/18 MRSA Screen - Final, Complete MRSA not isolated Laboratory Tests 08/15/18 03:05 A/P: Assessment: Chronic A Fib with RVR, better controlled after addition of long-acting CCB to her chronic regimen of beta-blockers H/o TOF repair in the 1970s at the [facility] (details unknown) H/o pacemaker placement in or around 2009 in [place] (followed by her tail puller in [place], [place]; last interrogated Jun 2018, next interrog Sep 2018) Pulmonary hypertension. Echo of 08/15/18 shows PASP 55 mmHg Ac on chronic CHF, diastolic. Echo of 08/15/18 shows LVEF 60-65% Obesity with BMI approx 44 Chronic hypoxemia: prob obesity-hypovent. Has known MARILYNN that is treated with CPAP Depression Plan: * We reviewed her CV issues with her and answered questions * We reviewed the rationale of med changes, including the addition of OAC * Ok for d/c on current card regimen. Close outpt cardiac f/u advised ANDRES CANO MD FACP FAC CCDS Aug 16, 2018 12:27
[2018-08-16] MEDS ORDERED: NS IV 1000 ML 1,000 ML IV SCH (12:45)
[2018-08-16 14:00] VITALS: BP 99/53
--- NOTE | 2018-08-16 14:30 | NUR ---
DR BLANKENSHIP INFORMED OF DARK URINE OUTPUT, ORDERS GIVEN FOR UA, NS AT 500ML HOUR TIMES 2 HOURS, AND SONOGRAM, OUTPUT THIS SHIFT 95ML, BP 99/53, PULSE 83, O2 SAT 94 PERCENT DENIES PAIN OR SOB, UP IN CHAIR WITH LEGS ELEVATED, LOWER LEGS EDEMATOUS, CALL LIGHT WITHIN REACH, O2 ON PER NC
--- NOTE | 2018-08-16 14:32 | Progress Note-Hospitalist ---
Progress Note Progress Notes/Assess & Plan Date Seen 08/16/18 Time Seen by Provider: 14:25 Assessment & Plan The patient is a 68-year-old white female who is pleasant but apparently confused. She had been admitted on 08/13 for A. fib with RVR. This has controlled rate now and she was transferred to the [facility]. The nurses report that they have concern as she is not been putting out much urine to speak of. A Drummond catheter was placed and irrigated. The return is relatively minimum and is dark and thick. It appears to be very dark old blood. A specimen will be sent to the lab. She is currently receiving a liter of IV fluids. Many recorded blood pressures have been in the 60s and low 70s for mean arterial pressures. This appears to have begun on 08/14. She had previously been taking metoprolol and this has been discontinued. Physical exam: The patient carries on a rather rambling dialogue. Lungs are clear to auscultation. CV is slow and regular. Extremities show no pedal edema. There is a minimum return in the catheter bag. This is dark red and nearly black and quite thick. A specimen will be sent to lab. Impression: Atrial fibrillation initially with RVR. 2.borderline hypotension. 3.poor urine output. Plan: UA. CBC. 1 L of IV fluids. PATRICK BLANKENSHIP MD Aug 16, 2018 14:32
[2018-08-16 15:05] LABS: BILIRUBIN,URINE NEGATIVE (NEGATIVE); CLARITY,URINE BLOODY; COLOR,URINE BROWN; GLUCOSE, URINE (UA) NEGATIVE (NEGATIVE); KETONES,URINE 1+ (NEGATIVE); LEUKOCYTE ESTERASE ,URINE 1+ (NEGATIVE); NITRITE,URINE NEGATIVE (NEGATIVE); PH,URINE 7 (5-9); PROTEIN,URINE 4+ (NEGATIVE); UROBILINOGEN,URINE NORMAL (NORMAL)
[2018-08-16 15:20] LABS: BACTERIA,URINE NEGATIVE /HPF; RBC,URINE TNTC /HPF; WBC,URINE 0-2 /HPF
[2018-08-16 15:35] LABS: BASOPHILS % (AUTO) 0 % (0-10); EOSINOPHILS % (AUTO) 0 % (0-10); HEMATOCRIT 44 % (35-52); LYMPHOCYTES # (AUTO) 1.1 X 10^3 (1.0-4.0); LYMPHOCYTES % (AUTO) 16 % (12-44); MEAN CORPUSCULAR HEMOGLOBIN 34 PG (25-34); MEAN CORPUSCULAR HGB CONC 30 G/DL (32-36); MEAN CORPUSCULAR VOLUME 113 FL (80-99); MEAN PLATELET VOLUME 11.2 FL (7.4-10.4); MONOCYTES # (AUTO) 1.1 X 10^3 (0.0-1.0); MONOCYTES % (AUTO) 15 % (0-12); NEUTROPHILS % (AUTO) 69 % (42-75); PLATELET COUNT 141 10^3/uL (130-400); RED BLOOD COUNT 3.86 10^6/uL (4.35-5.85); RED CELL DISTRIBUTION WIDTH 14.9 % (10.0-14.5); WHITE BLOOD COUNT 7.2 10^3/uL (4.3-11.0)
[2018-08-16 15:53] LABS: CALCIUM 9.5 MG/DL (8.5-10.1); CREATININE SERUM 2.04 MG/DL (0.60-1.30); POTASSIUM 5.3 MMOL/L (3.6-5.0)
[2018-08-16 15:55] VITALS: BP 100/67
[2018-08-16] MEDS: NS IV 1000 ML 1,000 ML IV SCH (16:18)
--- NOTE | 2018-08-16 16:20 | NUR ---
POTASSIUM 5.3, BUN 40, CR 2.04, LACTIC ACID, 0.87, RESULTS CALLED TO DR BLANKENSHIP, URINE OUTPUT 30 ML SINCE BOLUS, ORDERED TO CONTINUE NS AT 75ML HOUR
--- NOTE | 2018-08-16 16:20 | NUR ---
RENAL SONOGRAM DONE
--- NOTE | 2018-08-16 16:48 | Diagnostic Imaging Report ---
PROCEDURE: US Renal Bilateral. TECHNIQUE: Multiple real-time grayscale images were obtained over the kidneys in various projections bilaterally. INDICATION: Decreased urine output. Hematuria. FINDINGS: The right kidney measures 10 cm in length and the left measures 10.4 cm in length. There are no sonographic findings to suggest hydronephrosis. There is no evidence of a renal mass or findings to suggest a shadowing internal calculus. Urinary bladder could not be evaluated as this is decompressed by Drummond catheter. IMPRESSION: 1. No sonographic evidence of hydronephrosis. No sonographic demonstration of a renal mass or shadowing intrarenal calculus. Dictated by: Dictated on workstation # [id number]
[2018-08-16 19:20] VITALS: BP 86/61
[2018-08-16 21:00] VITALS: BP 97/57
[2018-08-16] MEDS: GABAPENTIN 100 MG (NEURONTIN) CAP PO SCH (22:07)
[2018-08-16] MEDS: DULoxetine 30 MG (CYMBALTA) CAP PO SCH (22:07)
[2018-08-17 00:51] VITALS: BP 101/61
[2018-08-17 04:33] VITALS: BP 128/50
--- NOTE | 2018-08-17 05:45 | NUR ---
Dr Abarca notified of high potussium orders recieved
[2018-08-17] MEDS: NS IV 1000 ML 1,000 ML IV SCH ×2 (05:58→18:34)
[2018-08-17] MEDS ORDERED: FUROSEMIDE 20 MG (LASIX) TAB PO SCH (07:00)
[2018-08-17] MEDS ORDERED: KCL 10 MEQ TAB (MICRO K) PO SCH (07:00)
[2018-08-17] MEDS: ASPIRIN E.C. 81 MG (ECOTRIN) TAB PO SCH (07:47)
[2018-08-17] MEDS: busPIRone 5 MG (BUSPAR) TAB PO SCH ×2 (07:48→20:27)
[2018-08-17] MEDS: ALLOPURINOL 100 MG (ZYLOPRIM) TAB PO SCH (07:48)
[2018-08-17] MEDS: APIXABAN 5 MG (ELIQUIS) TABLET PO SCH (07:48)
[2018-08-17] MEDS: MULTIVIT W/MINERALS TAB (THERAGRAN M) PO SCH (07:48)
[2018-08-17] MEDS: CALCIUM CARB + VIT D 600 MG (CALCARB + D) TAB PO SCH ×2 (07:49→20:27)
[2018-08-17 08:00] VITALS: BP 118/66
[2018-08-17 09:06] LABS: CALCIUM 9.1 MG/DL (8.5-10.1); CREATININE SERUM 1.9 MG/DL (0.60-1.30); POTASSIUM 5.8 MMOL/L (3.6-5.0)
--- NOTE | 2018-08-17 09:12 | Progress Note-Cardiology ---
Cardiology SOAP Progress Note Subjective: Sitting up in bed. Denies any c/o CP. Continues to c/o SOB, but feels it is better. No c/o palpitations. Objective: I&O/Vital Signs 08/17/18 08/17/18 08/17/18 08/17/18 04:33 07:00 08:00 08:18 Temp 96.7 97.6 Pulse 94 74 85 Resp 20 20 B/P (MAP) 128/50 (76) 118/66 (83) Pulse Ox 93 94 92 O2 Delivery Nasal Cannula Nasal Cannula Nasal Cannula O2 Flow Rate 5.00 5.00 5.00 08/17/18 08/17/18 12:00 13:00 Temp 96.2 Pulse 84 94 Resp 18 B/P (MAP) 112/63 (79) Pulse Ox 96 O2 Delivery Nasal Cannula O2 Flow Rate 5.00 08/17/18 00:00 Intake Total 1980 ml Output Total 225 ml Balance 1755 ml Weight (Pounds): 247 Weight (Ounces): 4.0 Weight (Calculated Kilograms): 112.343037 Constitutional: AAO x 3, well-developed, well-nourished Respiratory: No accessory muscle use; other (good bilat air entry, somewhat diminished at the bases) Cardiovascular: irregularly irregular, S1 and S2, systolic murmur (2/6 CHAYO at card base) Gastrointestional: No tender; soft; No guarding, No rebound; audible bowel sounds Extremities: No clubbing, No cyanosis, No significant edema Neurologic/Psychiatric: oriented x 3, grossly intact, power is 5/5 both on sides Skin: No rash on exposed areas, No ulcerations on exposed areas Results/Procedures: Labs Laboratory Tests 08/16/18 14:30: Urine Color BROWNH, Urine Clarity BLOODYH, Urine pH 7, Urine Specific [place] 1.020, Urine Protein 4+, Urine Glucose (UA) NEGATIVE, Urine Ketones 1+H, Urine Nitrite NEGATIVE, Urine Bilirubin NEGATIVE, Urine Urobilinogen NORMAL, Urine Leukocyte Esterase 1+H, Urine RBC (Auto) 5+H, Urine RBC TNTCH, Urine WBC 0-2, Urine Squamous Epithelial Cells NONE, Urine Crystals NONE, Urine Bacteria NEGATIVE, Urine Casts NONE, Urine Mucus NEGATIVE, Urine Culture Indicated NO 08/16/18 15:20: White Blood Count 7.2, Red Blood Count 3.86L, Hemoglobin 13.0, Hematocrit 44, Mean Corpuscular Volume 113H, Mean Corpuscular Hemoglobin 34, Mean Corpuscular Hemoglobin Concent 30L, Red Cell Distribution Width 14.9H, Platelet Count 141, Mean Platelet Volume 11.2H, Neutrophils (%) (Auto) 69, Lymphocytes (%) (Auto) 16 , Monocytes (%) (Auto) 15H, Eosinophils (%) (Auto) 0, Basophils (%) (Auto) 0, Neutrophils # (Auto) 5.0, Lymphocytes # (Auto) 1.1, Monocytes # (Auto) 1.1H, Eosinophils # (Auto) 0.0, Basophils # (Auto) 0.0, Sodium Level 141, Potassium Level 5.3H, Chloride Level 98, Carbon Dioxide Level 33H, Anion Gap 10, Blood Urea Nitrogen 40H, Creatinine 2.04H, Estimat Glomerular Filtration Rate 24, BUN/ Creatinine Ratio 20, Glucose Level 141H, Lactic Acid Level 0.87, Calcium Level 9.5 08/17/18 08:25: Sodium Level 141, Potassium Level 5.8H, Chloride Level 99, Carbon Dioxide Level 34H, Anion Gap 8, Blood Urea Nitrogen 53H, Creatinine 1.90H, Estimat Glomerular Filtration Rate 26, BUN/Creatinine Ratio 28, Glucose Level 123H, Calcium Level 9.1 08/17/18 10:26: Glucometer 97 Microbiology 08/13/18 MRSA Screen - Final, Complete MRSA not isolated Laboratory Tests 08/16/18 15:20 08/17/18 08:25 A/P: Assessment: Chronic A Fib with RVR, better controlled after addition of long-acting CCB to her chronic regimen of beta-blockers Hematuria Ac renal failure and hyperkalemia H/o TOF repair in the 1970s at the [facility] (details unknown) H/o pacemaker placement in or around 2009 in [place] (followed by her coal picker in [place], [place]; last interrogated Jun 2018, next interrog Sep 2018) Pulmonary hypertension. Echo of 08/15/18 shows PASP 55 mmHg Ac on chronic CHF, diastolic. Echo of 08/15/18 shows LVEF 60-65% Obesity with BMI approx 44 Chronic hypoxemia: prob obesity-hypovent. Has known MARILYNN that is treated with CPAP Depression Plan: * We reviewed her CV issues with her and answered questions * We reviewed the rationale of med changes, including the addition of OAC * Continue current regimen * Hyperkalemia - Kayexalate * Somewhat low blood pressure - hold BB for now, but continue CCB Physician Assessment Physician Assessment Does not report cp or palp or syncope. Notes tiredness Lungs: fair to good air entry, diminished at the bases Cor: irreg Ext: mild edema A&R * As documented in our note above that I updated (italics) and as noted below * New issues today * Monitor labs * Correct hyperkalemia * Hold Eliquis until source of hematuria identified and treated * I spoke with her and answered her questions PATSY LO Aug 17, 2018 09:12 ANDRES CANO MD FACP FAC CCDS Aug 17, 2018 13:23
[2018-08-17] MEDS ORDERED: SOD POLYSTERENE 15 GM/60 ML (KAYEXALATE) UNIT DOSE PO NR (09:30)
--- NOTE | 2018-08-17 09:50 | Progress Note-Hospitalist ---
RODRIGO WOOD DO 08/17/18 0950: Subjective HPI/CC On Admission Date Seen by Provider: Aug 17, 2018 Time Seen by Provider: 09:00 CC: Atrial fibrillation with rapid ventricular response with volume overload HPI: This is a 68-year-old white female who was on track for admission to [facility] behavioral health last evening but when she presented to the ER for medical screening she was found to have heart rate of 150 with atrial fibrillation with rapid ventricular response and a known history of paroxysmal atrial fibrillation along with repair of tetralogy of fallot in 1971 with anasarca noted an elevated BNP and hypoxia prompting cardiology evaluation and management transferred to via [facility] ICU. Dr. Nunez to see the patient in consultation and recommended placement of Eliquis for anticoagulation for stroke prophylaxis and maintained on Cardizem drip that has been since converted to oral Cardizem along with oral Lasix after IV Lasix with successful and diuresis. She does have dementia and she denied any history of suicidal ideation statements but she changes her story is quite frequently due to dementia. Bettina Zavala is her primary care provider in [place]. Subjective/Events-last exam Patient was set for discharge to [facility] unit Discharge put on hold due to hematuria and obtaining urology consultation. Continuous bladder irrigation started Creat 1.9 Maintaining IVF Review of Systems General: Fatigue Neurological: Confusion Focused Exam Lactate Level 08/16/18 15:20: Lactic Acid Level 0.87 Objective Exam Vital Signs Vital Signs Date Time Temp Pulse Resp B/P (MAP) Pulse Ox O2 Delivery O2 Flow Rate FiO2 08/17/18 08:18 92 Nasal Cannula 5.00 08/17/18 08:00 97.6 85 20 118/66 (83) Capillary Refill : Less Than 3 Seconds General Appearance: No Apparent Distress, WD/WN, Chronically ill, Obese Respiratory: Chest Non Tender, Lungs Clear, Normal Breath Sounds, No Accessory Muscle Use, No Respiratory Distress Cardiovascular: Regular Rate, Rhythm, No Edema, No Gallop, No JVD, No Murmur, Normal Peripheral Pulses Neurologic/Psychiatric: Alert, No Motor/Sensory Deficits, Normal Mood/Affect, Disoriented Results/Procedures Lab Laboratory Tests 08/16/18 15:20 08/17/18 08:25 Patient resulted labs reviewed. Assessment/Plan Assessment and Plan Assess & Plan/Chief Complaint Assessment: Atrial fibrillation with rapid ventricular response now rate controlled on PO meds Volume overload placed on IV Lasix then changed to PO Known history of paroxysmal atrial fibrillation Hypertension Obstructive sleep apnea Dementia Depression Suicidal ideation prompting [facility] admission [facility] Gross hematuria with possible clot retention Plan Keep in [facility] Appreciate cardiology recommendations Anticoagulation DC due to hematuria Diuresis with Lasix but decrease dose Monitor closely [facility] admission once medically stable NS IVF Urology consultation Diagnosis/Problems Diagnosis/Problems (1) Atrial fibrillation with rapid ventricular response Status: Resolved Resolution Date/Time: 08/15/18 @ 15:25 (2) Volume overload Status: Acute (3) Obstructive sleep apnea on CPAP Status: Chronic (4) Obesity Status: Chronic Qualifiers: Obesity type: due to excess calories Obesity classification: adult class 3 (BMI >= 40) Body mass index: BMI 40.0-44.9 (5) Dementia Status: Chronic Qualifiers: Dementia type: Alzheimer's disease Alzheimer's disease onset: unspecified onset Dementia behavioral disturbance: with behavioral disturbance Qualified Codes: G30.9 - Alzheimer's disease, unspecified; F02.81 - Dementia in other diseases classified elsewhere with behavioral disturbance (6) Depression Status: Acute Qualifiers: Depression Type: unspecified Qualified Codes: F32.9 - Major depressive disorder, single episode, unspecified (7) History of permanent cardiac pacemaker placement Status: Chronic (8) Requires supplemental oxygen Status: Chronic (9) Suicide ideation Status: Acute (10) Thrombocytopenia Status: Chronic (11) Hypomagnesemia Status: Acute (12) Renal failure Status: Acute (13) Hematuria Status: Acute (14) Hyperkalemia Status: Acute (15) Blood clot in bladder Status: Acute Clinical Quality Measures DVT/VTE Risk/Contraindication: Risk Factor Score Per Nursin RFS Level Per Nursing on Admit: 4+=Very High GANESH KERR MEDICAL STUDENT 08/17/18 1051: Subjective Subjective/Events-last exam Pt doing well Pt had hematuria that was discovered with Drummond. Pt is on anticoagulation which has not been held at this time- will hold has not had any more episodes of Afib with RVR pt repeating sentences, has history of dementia plan to send pt to [facility] unit once discharged from [facility] Objective Exam General Appearance: No Apparent Distress, WD/WN HEENT: PERRL/EOMI Respiratory: Lungs Clear, Normal Breath Sounds, No Respiratory Distress Cardiovascular: Regular Rate, Rhythm; No Irregularly Irregular Neurologic/Psychiatric: Other (rambling speech, repeating sentences) Assessment/Plan Assessment and Plan Assess & Plan/Chief Complaint Assessment: Afib with RVR - resolved Volume overload Hematuria Plan: Continue on PO lasix Hold pt's anticoagulation will continue to monitor will discharge to [facility] once medically stable RODRIGO WOOD DO Aug 17, 2018 09:50 GANESH KERR MEDICAL STUDENT Aug 17, 2018 10:51
[2018-08-17] MEDS: DILTIAZEM 180 MG (CARDIZEM CD) CAP PO SCH (10:34)
[2018-08-17] MEDS: meTOprolol TARTRATE 50 MG (LOPRESSOR) TAB PO SCH (10:34)
--- NOTE | 2018-08-17 10:42 | NUR ---
patient 2 way barbosa removed at this time and replaced with a 3 way barbosa 18 swedish catheter with CBI connected as ordered per Dr. Wright. This RN will cont to monitor this patient throughout the remainder of this shift. Normal Saline used to irrigate her bladder. Dr. Winkler will be in later to see this patient per Dr. Wright. Patient tolerated the removal/replacement of the barbosa catheter using sterile technique.
[2018-08-17 12:00] VITALS: BP 112/63
--- NOTE | 2018-08-17 12:02 | Physical Therapy Daily Note ---
PT Daily Note-Current Subjective Pt was in bed and agreed to PT. Pain Numeric Pain Scale: 0-No Pain Location: No Pain Reported Mental Status Patient Orientation: Confused Attachments: Oxygen, Drummond Catheter, IV Transfers Therapy Code Descriptions/Definitions Functional [place] Measure: 0=Not Assessed/NA 4=Minimal Assistance 1=Total Assistance 5=Supervision or Setup 2=Maximal Assistance 6=Modified [place] 3=Moderate Assistance 7=Complete [place] Therapy Quality Codes: 6 Independent with activity with or without an assistive device 5 Patient requires set up or clean up by helper. Patient completes activity by themselves 4 Supervision or touching assist (CGA). [place] provide cues , steadying assist 3 The helper provides less than half the effort to complete the activity 2 The helper provides more than half the effort to complete the activity 1 Dependent. The helper does all the effort to complete an activity 7 Patient refused to complete or attempt activity 9 The patient did not perform the activity before the current illness or injury 88 Not attempted due to Medical conditions or safety concerns Transfers (B, C, W/C) (FIM): 4 Scootin Rollin Supine to/from Sit: 5 Sit to/from Stand: 4 Bed to/from Chair: 4 Weight Bearing Right Lower Extremity: Right Full Weight Bearing Left Lower Extremity: Left Full Weight Bearing Gait Training Gait (FIM): 1 Distance (FIM): 1=up to 49 ft Distance: 5' Gait Level of Assist: 4 Gait Persons Needed: 1 Gait Assistive Device: FWW Assessment Current Status: Poor Progress Pt was in bed and was able to transfer to EOB with minimal assistance. Pt seemed confused when nurse inside sales manager was asking questions on her doctors. Pt was able to transfer with min A and FWW from EOB to recliner. Pt is now in recliner with all needs met. PT to increase activity as tolerated by patient. PT Short Term Goals Short Term Goals Time Frame: Aug 22, 2018 Transfers (B,C,W/C) (FIM): 6 Gait (FIM): 6 Distance (FIM): 3=150 ft Gait Distance Comment: 150ft Gait Level of Assist: 6 Gait Assistive Device: Walker 4 Wheeled PT Plan Treatment/Plan Treatment Plan: Continue Plan of Care Treatment Plan: Bed Mobility, Functional Activity Angela, Functional Strength, Gait, Safety, Therapeutic Exercise Treatment Duration: Aug 22, 2018 Frequency: 5 times per week Estimated Hrs Per Day: .25 hour per day Patient and/or Family Agrees t: Yes Time/GCodes Time In: 1127 Time Out: 1136 Total Billed Treatment Time: 9 Total Billed Treatment 1 visit FA 9 min CHANDNI SILVESTRE PT Aug 17, 2018 12:02
--- NOTE | 2018-08-17 14:34 | NUR ---
CBI INTAKE UNTIL 1400 ON 08/17/2018 WAS 250 MLS OF NORMAL SALINE. PATIENT HAS HAD A GRAND TOTAL OF 300ML OF URINE OUTPUT AFTER SUBTRACTION OF THE CBI. THIS RN WILL CONT. TO MONITOR THIS PATIENT THROUGHOUT THE REMAINDER OF THIS SHIFT.
--- NOTE | 2018-08-17 14:50 | Occupational Ther Daily Note ---
OT Current Status-Daily Note Subjective Pt sitting alone in her room in a recliner. Pt stated , " I am tired sitting in a recliner. " Pain Numeric Pain Scale: 0-No Pain Mental Status/Objective Patient Orientation: Person, Place, Time, Eyes Open, Normal For Age Therapy Code Descriptions/Definitions Functional [place] Measure: 0=Not Assessed/NA 4=Minimal Assistance 1=Total Assistance 5=Supervision or Setup 2=Maximal Assistance 6=Modified [place] 3=Moderate Assistance 7=Complete [place] Attachments: Drummond Catheter, IV, Oxygen ADL-Treatment 68 yrs old W/F was [facility] in [facility] in [facility] & was Independent in all ADL' s , walking with w/w . Recent hospitalization due to A-Fib & SOB . On OT Evaluation Pt needs Mod A in UB dressing, Supervision with SBA in supine to sit in bed, func transfers from Recliner to be with w/ Walker , MS in BUE -/, Pt very tired, poor endurance, SOB, O2 dependent, fatigue soon & needs frequent rest periods between each activity.Unsteady standing balance due to marked increase of weakness, Intact coordination, sitting balance good. Patient has PACEMAKER .No over the head exercises. Eating (FIM): 6 Grooming (FIM): 5 Bathing (FIM): 0 Upper Body (FIM): 3 Toileting (FIM): 0 Transfers (B, C, W/C) (FIM): 5 Toilet/Commode Transfer (FIM): 5 Tub Transfer(FIM): 0 Shower Transfer(FIM): 0 Education OT Patient Education: Correct positioning, Energy conservation, Safety issues Teaching Recipient: Patient Teaching Methods: Demonstration, Discussion Response to Teaching: Verbalize Understanding, Return Demonstration OT Short Term Goals Short Term Goals Time Frame: Aug 31, 2018 Eating(FIM): 7 Grooming(FIM): 6 Bathing(FIM): 0 Upper Body Dressing(FIM): 5 Lower Body Dressing(FIM): 4 Toileting(FIM): 5 Transfers (B,C,W/C) (FIM): 66 Toilet/Commode Transfer(FIM): 6 Tub Transfer(FIM): 0 Shower Transfer(FIM): 5 Additional Short Term Goals: 1-Demonstrate ADL Tasks, 2-Verbalize Understanding , 3-ImproveStrength/Angela 1=Demonstrate adherence to instructed precautions during ADL tasks. 2=Patient will verbalize/demonstrate understanding of assistive devices/ modifications for ADL. 3=Patient will improve strength/tolerance for activity to enable patient to perform ADL's. OT Documentation Coordinator Goals Documentation Coordinator Goals Time Frame: Sep 14, 2018 Eating (FIM): 7 Grooming(FIM): 7 Bathing(FIM): 0 Upper Body Dressing(FIM): 6 Lower Body Dressing(FIM): 6 Toileting(FIM): 6 Transfers (B,C,W/C) (FIM): 6 Toilet/Commode Transfer(FIM): 6 Tub Transfer(FIM): 0 Shower Transfer(FIM): 6 Additional Goals: 1-Demonstrate ADL Tasks, 2-Verbalize Understanding, 3- ImproveStrength/Angela 1=Demonstrate adherence to instructed precautions during ADL tasks. 2=Patient will verbalize/demonstrate understanding of assistive devices/ modifications for ADL. 3=Patient will improve strength/tolerance for activity to enable patient to perform ADL's. OT Education/Plan Problem List/Assessment Assessment: Decreased Activ Tolerance, Decreased Safety Aware, Decreased UE Strength, Impaired Bed Mobility, Impaired Funct Balance Discharge Recommendations Plan/Recommendations: Continue POC Therapy D/C Recommendations: Assisted Living, Occupational Therapy Home Care Equpiment Recommendations-D/C: Bath Chair, Extended Shower Sprayer, [employer] Cloud Architect, [place] Barriers to Progress Pt fatigue soon , O2 dependent Patient/Family Goals To return TOM Independently with w/ walker Treatment Plan/Plan of Care Treatment,Training & Education: Yes Patient would benefit from OT for education, treatment and training to promote independence in ADL's, mobility, safety and/or upper extremity function for ADL' s. Plan of Care: ADL Retraining, Caregiver Training, Functional Mobility, UE Funct Exercise/Act Treatment Duration: Sep 14, 2018 Frequency: 5 times per week Estimated Hrs Per Day: .25 hour per day Agreement: Yes Rehab Potential: Good Time/GCodes Start Time: 13:05 Stop Time: 14:04 Total Time Billed (hr/min): 59 Billed Treatment Time 1, Eval 30 min, ADLs 29 min . Total 59 minutes RICKIE SALGUERO OT Aug 17, 2018 14:50
--- NOTE | 2018-08-17 15:28 | Occupational Therapy Eval ---
OT Evaluation-General/PLF Medical Diagnosis Admission Date Aug 13, 2018 at 20:50 Medical Diagnosis: atrial fibrillation with RVR Onset Date: Aug 13, 2018 Height/Weight Height (Feet): 5 Height (Inches): 3.00 Weight (Pounds): 247 Weight (Ounces): 4.0 Precautions Precautions/Isolations: Fall Prevention, Standard Precautions Safety Interventions: None, Bed Exit Alarm Comments Pt has PACEMAKER & thus no over the head exercises. tt Referral Physician: Deanna Wright DO Referral Reason: Activity Tolerance, Self Care, Evaluation/Treatment, Strengthening/ROM Medical History Pertinent Medical History: Atrial Fib, Dementia, HTN, Renal Insufficiency Additional Medical History Dementia, Obesity, Pacemaker, Hematuria, Suicide ideation, hyperkalemia., O2 dependent, barbosa's catheter. Current History 68 yrs old w/f admitted due to A-Fib & SOB . Pt lives Independently in [facility] in [facility]. Reviewed History: Yes Social History Home: Assisted Living ADL-Prior Level of Function Therapy Code Descriptions/Definitions Functional [place] Measure: 0=Not Assessed/NA 4=Minimal Assistance 1=Total Assistance 5=Supervision or Setup 2=Maximal Assistance 6=Modified [place] 3=Moderate Assistance 7=Complete [place] Therapy Quality Codes: 6 Independent with activity with or without an assistive device 5 Patient requires set up or clean up by helper. Patient completes activity by themselves 4 Supervision or touching assist (CGA). [place] provide cues , steadying assist 3 The helper provides less than half the effort to complete the activity 2 The helper provides more than half the effort to complete the activity 1 Dependent. The helper does all the effort to complete an activity 7 Patient refused to complete or attempt activity 9 The patient did not perform the activity before the current illness or injury 88 Not attempted due to Medical conditions or safety concerns Functional Abilities and Goals: Independent: Patient completed the activities by him/herself, with or without an assistive device, with no assistance from a helper. Needed Some Help: Patient needed partial assistance from another person to complete activities. Dependent: A helper completed the activities for the patient. Unknown: Not Applicable: ADL PLOF Comments Pt was Independent in all ADLs & mobility with w/w in [facility] in [facility] Self Care: Independent Drive Self: No OT Current Status Subjective Pt was sitting in recliner in her room. Pt stated , " I am tired sitting in recliner, " Pain Numeric Pain Scale: 0-No Pain Mental Status/Objective Patient Orientation: Person, Place, Time Attachments: Barbosa Catheter, IV, Oxygen Current Glasses/Contacts: Yes Hand Dominance: Right Upper Extremity ROM WFL Upper Extremity Coordination Intact Upper Extremity Sensation Intact Upper Extremity Strength MS in [facility] -4 grossly graded. ADL-Treatment ADL-Current OT Eval today. Pt needs SBA in sit to stand from recliner & supine to sit in bed . Mod A in UB dressing, unsteady standing balance due to fatigue & SOB , poor endurance , fatigue soon , grooming with SBA . Pt has Barbosa's catheter. MS in [facility] -11/06. Pt has PACEMAKER & thus NO over the head ex. Therapy Code Descriptions/Definitions Functional [place] Measure: 0=Not Assessed/NA 4=Minimal Assistance 1=Total Assistance 5=Supervision or Setup 2=Maximal Assistance 6=Modified [place] 3=Moderate Assistance 7=Complete [place] Therapy Quality Codes: 6 Independent with activity with or without an assistive device 5 Patient requires set up or clean up by helper. Patient completes activity by themselves 4 Supervision or touching assist (CGA). [place] provide cues , steadying assist 3 The helper provides less than half the effort to complete the activity 2 The helper provides more than half the effort to complete the activity 1 Dependent. The helper does all the effort to complete an activity 7 Patient refused to complete or attempt activity 9 The patient did not perform the activity before the current illness or injury 88 Not attempted due to Medical conditions or safety concerns Eating (FIM): 7 Grooming (FIM): 5 Bathing (FIM): 0 Upper Body Dressing (FIM): 3 Lower Body Dressing (FIM): 0 Toileting (FIM): 0 Transfers (B, C, W/C) (FIM): 5 Toilet/Commode Transfer (FIM): 5 Tub Transfer (FIM): 0 Shower Transfer (FIM): 0 Education OT Patient Education: Correct positioning, Safety issues Teaching Recipient: Patient Teaching Methods: Demonstration, Discussion Response to Teaching: Verbalize Understanding, Return Demonstration OT Short Term Goals Short Term Goals Time Frame: Aug 31, 2018 Eating(FIM): 7 Grooming(FIM): 6 Bathing(FIM): 0 Upper Body Dressing(FIM): 5 Lower Body Dressing(FIM): 4 Toileting(FIM): 5 Transfers (B,C,W/C) (FIM): 6 Toilet/Commode Transfer(FIM): 6 Tub Transfer(FIM): 0 Shower Transfer(FIM): 5 Additional Short Term Goals: 1-Demonstrate ADL Tasks, 2-Verbalize Understanding , 3-ImproveStrength/Angela 1=Demonstrate adherence to instructed precautions during ADL tasks. 2=Patient will verbalize/demonstrate understanding of assistive devices/ modifications for ADL. 3=Patient will improve strength/tolerance for activity to enable patient to perform ADL's. OT Penitentiary Goals Penitentiary Goals Time Frame: Sep 14, 2018 Eating (FIM): 7 Grooming(FIM): 7 Bathing(FIM): 0 Upper Body Dressing(FIM): 6 Lower Body Dressing(FIM): 6 Toileting(FIM): 6 Transfers (B,C,W/C) (FIM): 6 Toilet/Commode Transfer(FIM): 6 Tub Transfer(FIM): 0 Shower Transfer(FIM): 6 Additional Goals: 1-Demonstrate ADL Tasks, 2-Verbalize Understanding, 3- ImproveStrength/Angela 1=Demonstrate adherence to instructed precautions during ADL tasks. 2=Patient will verbalize/demonstrate understanding of assistive devices/ modifications for ADL. 3=Patient will improve strength/tolerance for activity to enable patient to perform ADL's. OT Education/Plan Problem List/Assessment Assessment: Decreased Activ Tolerance, Decreased Safety Aware, Decreased UE Strength, Impaired Funct Balance, Impaired Self-Care Skills Discharge Recommendations Plan/Recommendations: Continue POC Therapy D/C Recommendations: Assisted Living, Occupational Therapy Home Care Equpiment Recommendations-D/C: Bath Chair, Roof Bolter Operator, Sock Aide, [place] Barriers to Progress SOB, O2 dependent, poor endurance, fatigue soon, obesity. Barbosa's catheter. Patient/Family Goals To return [facility] Independently. Treatment Plan/Plan of Care Patient would benefit from OT for education, treatment and training to promote independence in ADL's, mobility, safety and/or upper extremity function for ADL' s. Plan of Care: ADL Retraining, Caregiver Training, Functional Mobility, UE Funct Exercise/Act Treatment Duration: Sep 14, 2018 Frequency: 5 times per week Estimated Hrs Per Day: .25 hour per day Agreement: Yes Rehab Potential: Good Time/GCodes Start Time: 13:00 Stop Time: 13:59 Total Time Billed (hr/min): 59 Billed Treatment Time 1, Eval 30 min, ADLs 29 min Total 59 min. RICKIE SALGUERO OT Aug 17, 2018 15:28
[2018-08-17 16:00] VITALS: BP 93/55
--- NOTE | 2018-08-17 16:27 | Pulmonary Progress Note ---
Sepsis Event Evaluation Height, Weight, BMI Height: 5'3.00" Weight: 247lbs. 4.0oz. 112.052259sb; 44.0 BMI Method: Focused Exam Lactate Level 08/16/18 15:20: Lactic Acid Level 0.87 Exam Exam Vital Signs Date Time Temp Pulse Resp B/P (MAP) Pulse Ox O2 Delivery O2 Flow Rate FiO2 08/17/18 13:00 94 08/17/18 12:00 96.2 84 18 112/63 (79) 96 Nasal Cannula 5.00 08/17/18 08:18 92 Nasal Cannula 5.00 08/17/18 08:00 97.6 85 20 118/66 (83) 94 Nasal Cannula 5.00 08/17/18 07:00 74 08/17/18 04:33 96.7 94 20 128/50 (76) 93 Nasal Cannula 5.00 08/17/18 01:00 72 08/17/18 00:51 97.3 89 20 101/61 (74) 90 Nasal Cannula 5.00 08/16/18 22:32 Nasal Cannula 3.00 08/16/18 21:00 82 97/57 (70) 93 08/16/18 20:00 93 Nasal Cannula 5.00 08/16/18 19:20 97.0 78 20 86/61 (69) 93 Nasal Cannula 5.00 08/16/18 19:00 71 I & O 08/17/18 07:00 Intake Total 2030 ml Output Total 275 ml Balance 1755 ml Height & Weight Height: 5'3.00" Weight: 247lbs. 4.0oz. 112.722594cf; 44.0 BMI Method: General Appearance: No Apparent Distress, WD/WN, Chronically ill, Obese HEENT: PERRL/EOMI Neck: Full Range of Motion, Normal Inspection, Non Tender, Supple, Carotid Bruit Respiratory: Chest Non Tender, Lungs Clear, Normal Breath Sounds, No Accessory Muscle Use, No Respiratory Distress Cardiovascular: Regular Rate, Rhythm, No Edema, No Gallop, No JVD, No Murmur, Normal Peripheral Pulses Capillary Refill: Less Than 3 Seconds Extremity: Normal Capillary Refill, Normal Inspection, Normal Range of Motion, Non Tender, No Calf Tenderness, No Pedal Edema Neurologic/Psychiatric: Alert, No Motor/Sensory Deficits, Normal Mood/Affect, Disoriented Skin: Normal Color, Warm/Dry Lymphatic: No Adenopathy Results Lab Laboratory Tests 08/16/18 15:20 08/17/18 08:25 Assessment/Plan Assessment/Plan Afib with RVR -Cardiology consulted Chronic CHF with pulmonary edema and hypoxia -Oxygen -repeat CXR -Cont Lasix -echo mild Hypotension - improved -monitor for now MARILYNN -CPAP therapy Obesity Dementia Depression SHAHANA GIPSON DO Aug 17, 2018 16:27
--- NOTE | 2018-08-17 17:47 | NUR ---
CBI STOPPED PER DR. FLOWERS.
--- NOTE | 2018-08-17 18:27 | Diagnostic Imaging Report ---
INDICATION: Shortness of breath. Frontal chest obtained at 4:48 p.m. and compared to 08/15/2018. FINDINGS: Prominent cardiomegaly again noted. There is unchanged bibasilar infiltrate with very poor inspiration. Pacemaker device is unchanged. There is no pneumothorax or gross pleural fluid. IMPRESSION: Cardiomegaly and central vascular congestion. Very poor inspiration with unchanged bibasilar infiltrate. Pacemaker device is stable. Dictated by: Dictated on workstation # [id number]
--- NOTE | 2018-08-17 19:17 | Diagnostic Imaging Report ---
PROCEDURE: CT abdomen and pelvis without contrast. TECHNIQUE: Multiple contiguous axial images were obtained through the abdomen and pelvis without the use of intravenous contrast. INDICATION: Hematuria. COMPARISON: None. FINDINGS: Cardiomegaly. Sternotomy. Cardiac pacer. [place] right diaphragmatic hernia contains a loop of colon. The liver, gallbladder, pancreas, spleen, adrenals, kidneys, collecting systems are negative on this noncontrast exam. The bladder is decompressed by Drummond catheter. Reproductive structures are grossly unremarkable. Normal appendix. No free intraperitoneal air or fluid. No lymphadenopathy. No evidence of bowel obstruction. Chronic left rib fractures. No acute osseous findings. IMPRESSION: No acute CT findings in the abdomen or pelvis on this noncontrast exam. Specifically, the kidneys and collecting systems are unremarkable. The bladder is decompressed by Drummond catheter. Additional chronic and incidental findings as above. Dictated by: Dictated on workstation # [id number]
[2018-08-17 20:00] VITALS: BP 123/67
[2018-08-17] MEDS: DULoxetine 30 MG (CYMBALTA) CAP PO SCH (20:27)
[2018-08-17] MEDS: GABAPENTIN 100 MG (NEURONTIN) CAP PO SCH (20:27)
--- NOTE | 2018-08-17 21:02 | CONSULTATION REPORT ---
DATE OF SERVICE: 08/17/2018 ATTENDING PHYSICIAN: Dr. Wright. SUMMARY: A 68-year-old white lady with atrial fibrillation, on Eliquis, who was found to have gross hematuria. Eliquis was held. The patient was started on CBI with Drummond catheter. Urine is crystal clear now. She denies any previous similar episodes. Denies significant voiding symptoms. IMPRESSION: Gross hematuria and chronic renal failure. RECOMMENDATION: We will stop the CBI, see how she does off the CBI. We will order a noncontrast CT scan of the abdomen and pelvis and in a day or two, we will do cystoscopy. This was fully explained to the patient. Job ID: [id number] DocumentID: [id number] Dictated Date: 08/17/2018 17:44:15 Sdc Teacher Date: 08/17/2018 21:01:41 Dictated By: CAMILLE FLOWERS MD
[2018-08-18] VITALS: BP 136/76
[2018-08-18 04:00] VITALS: BP 119/58
--- NOTE | 2018-08-18 04:59 | Pulmonary Progress Note ---
Subjective Date Seen by a Provider: Aug 18, 2018 Time Seen by a Provider: 04:54 Subjective/Events-last exam Patient is very confused this morning and frustrated that she cannot go home. She is agitated and not willing to report her condition this morning. She does report swelling and a cough. Review of Systems General: No Chills, No Night Sweats Pulmonary: No Dyspnea; Cough; No Pleuritic Chest Pain Cardiovascular: Edema; No: Chest Pain, Palpitations Gastrointestinal: No: Abdominal Pain Sepsis Event Evaluation Height, Weight, BMI Height: 5'3.00" Weight: 247lbs. 4.0oz. 112.606076ff; 44.0 BMI Method: Focused Exam Lactate Level 08/16/18 15:20: Lactic Acid Level 0.87 Exam Exam Vital Signs Date Time Temp Pulse Resp B/P (MAP) Pulse Ox O2 Delivery O2 Flow Rate FiO2 08/18/18 01:00 112 08/18/18 00:00 96.1 106 18 136/76 (96) 96 Nasal Cannula 5.00 08/17/18 21:00 Nasal Cannula 5.00 08/17/18 20:00 96.5 94 18 123/67 (85) 97 Nasal Cannula 5.00 08/17/18 19:00 90 08/17/18 16:00 97.3 89 18 93/55 (68) 97 Nasal Cannula 5.00 08/17/18 13:00 94 08/17/18 12:00 96.2 84 18 112/63 (79) 96 Nasal Cannula 5.00 08/17/18 08:18 92 Nasal Cannula 5.00 08/17/18 08:00 97.6 85 20 118/66 (83) 94 Nasal Cannula 5.00 08/17/18 07:00 74 I & O 08/18/18 07:00 Intake Total 2030 ml Output Total 1150 ml Balance 880 ml Height & Weight Height: 5'3.00" Weight: 247lbs. 4.0oz. 112.043162rh; 44.0 BMI Method: General Appearance: No Apparent Distress, WD/WN, Chronically ill, Obese HEENT: PERRL/EOMI, Pharynx Normal, Moist Mucous Membranes Neck: Full Range of Motion, Normal Inspection, Non Tender, Supple Respiratory: Chest Non Tender, Lungs Clear, Normal Breath Sounds, No Accessory Muscle Use, No Respiratory Distress Cardiovascular: No Gallop, No JVD, No Murmur, Irregularly Irregular Capillary Refill: Less Than 3 Seconds Extremity: Normal Capillary Refill, Normal Inspection, Normal Range of Motion, Non Tender, No Calf Tenderness, Pedal Edema Neurologic/Psychiatric: Alert, No Motor/Sensory Deficits, Disoriented Skin: Normal Color, Warm/Dry Lymphatic: No Adenopathy Results Lab Laboratory Tests 08/16/18 15:20 08/17/18 08:25 Assessment/Plan Assessment/Plan Afib with RVR -Cardiology consulted Chronic CHF with pulmonary edema and hypoxia -Oxygen -CXR on 08/17 showed unchanged bibasilar infiltrates, cardiomegaly and central vascular congestion -Cont Lasix 20mg, stop NS -echo MARILYNN -CPAP therapy Hyperkalemia -Kayexylate given yesterday, stopped pot. chloride yesterday -K+ 5.8 yesterday, 5.2 today -Continue lasix -Repeat K+ in AM Hematuria -Abd/pelvic CT negative for acute abnormality -LFTs normal -Anticoag held -Repeat UA Obesity Dementia, chronic -Patient is set for discharge to [facility] Depression -Monitor ABHIJIT VILLASENOR STUDENT Aug 18, 2018 04:59
[2018-08-18 05:53] LABS: BASOPHILS % (AUTO) 0 % (0-10); EOSINOPHILS # (AUTO) 0.1 10^3/uL (0.0-0.3); EOSINOPHILS % (AUTO) 1 % (0-10); HEMATOCRIT 41 % (35-52); HEMOGLOBIN 12.4 G/DL (11.5-16.0); LYMPHOCYTES # (AUTO) 1.2 X 10^3 (1.0-4.0); LYMPHOCYTES % (AUTO) 16 % (12-44); MEAN CORPUSCULAR HEMOGLOBIN 34 PG (25-34); MEAN CORPUSCULAR HGB CONC 31 G/DL (32-36); MEAN CORPUSCULAR VOLUME 112 FL (80-99); MEAN PLATELET VOLUME 11.1 FL (7.4-10.4); MONOCYTES # (AUTO) 0.8 X 10^3 (0.0-1.0); MONOCYTES % (AUTO) 11 % (0-12); NEUTROPHILS # (AUTO) 5.8 X 10^3 (1.8-7.8); NEUTROPHILS % (AUTO) 72 % (42-75); PLATELET COUNT 140 10^3/uL (130-400); RED BLOOD COUNT 3.64 10^6/uL (4.35-5.85); RED CELL DISTRIBUTION WIDTH 15.1 % (10.0-14.5)
[2018-08-18 06:16] LABS: ALBUMIN 3.5 GM/DL (3.2-4.5); BILIRUBIN,TOTAL 0.8 MG/DL (0.1-1.0); CALCIUM 9.7 MG/DL (8.5-10.1); CREATININE SERUM 1.37 MG/DL (0.60-1.30); POTASSIUM 5.2 MMOL/L (3.6-5.0); TOTAL PROTEIN 6.8 GM/DL (6.4-8.2)
[2018-08-18] MEDS: NS IV 1000 ML 1,000 ML IV SCH (08:07)
--- NOTE | 2018-08-18 08:49 | Progress Note-Urology ---
Progress Note-Urology Progress Notes/Assess & Plan Progress/Assessment & Plan URINE CLEAR OFF CBI. CT NEGATIVE. CYSTO LATER Final Diagnosis GROSS HEMATURIA (RESOLVED) CAMILLE FLOWERS MD Aug 18, 2018 08:49
[2018-08-18] MEDS: ALLOPURINOL 100 MG (ZYLOPRIM) TAB PO SCH (09:16)
[2018-08-18] MEDS: DILTIAZEM 180 MG (CARDIZEM CD) CAP PO SCH (09:16)
[2018-08-18] MEDS: busPIRone 5 MG (BUSPAR) TAB PO SCH ×2 (09:16→20:52)
[2018-08-18] MEDS: ASPIRIN E.C. 81 MG (ECOTRIN) TAB PO SCH (09:17)
[2018-08-18] MEDS: CALCIUM CARB + VIT D 600 MG (CALCARB + D) TAB PO SCH ×2 (09:17→20:52)
--- NOTE | 2018-08-18 09:39 | Progress Note-Hospitalist ---
ISRAELRODRIGO DO 08/18/18 0939: Subjective HPI/CC On Admission Date Seen by Provider: Aug 18, 2018 Time Seen by Provider: 09:00 CC: Atrial fibrillation with rapid ventricular response with volume overload HPI: This is a 68-year-old white female who was on track for admission to [facility] behavioral health last evening but when she presented to the ER for medical screening she was found to have heart rate of 150 with atrial fibrillation with rapid ventricular response and a known history of paroxysmal atrial fibrillation along with repair of tetralogy of fallot in 1971 with anasarca noted an elevated BNP and hypoxia prompting cardiology evaluation and management transferred to [facility] ICU. Dr. Nunez to see the patient in consultation and recommended placement of Eliquis for anticoagulation for stroke prophylaxis and maintained on Cardizem drip that has been since converted to oral Cardizem along with oral Lasix after IV Lasix with successful and diuresis. She does have dementia and she denied any history of suicidal ideation statements but she changes her story is quite frequently due to dementia. Bettina Zavala is her primary care provider in [place]. Subjective/Events-last exam Creatinine improved Continuous bladder irrigation was discontinued yesterday since no clot retention Appreciate urology input CT scan without contrast of kidneys will be ordered today Trying to get to the [facility] psych unit but she does not appear to be stable enough yet may entertain swing bed status at [facility] while we work on recovering in order to go to the [facility] psych unit Patient very confused today Spoke with nurse who will get her out of bed in chair Significant disability has occurred since this hospital stay Overall poor prognosis Review of Systems General: Fatigue Neurological: Incoordination, Confusion Focused Exam Lactate Level 08/16/18 15:20: Lactic Acid Level 0.87 Objective Exam Vital Signs Vital Signs Date Time Temp Pulse Resp B/P (MAP) Pulse Ox O2 Delivery O2 Flow Rate FiO2 08/18/18 16:10 97.8 71 18 139/62 (87) 95 High Flow N/C 5.00 Capillary Refill : Less Than 3 Seconds General Appearance: No Apparent Distress, WD/WN, Chronically ill, Obese Respiratory: Chest Non Tender, Lungs Clear, Normal Breath Sounds, No Accessory Muscle Use, No Respiratory Distress Cardiovascular: Regular Rate, Rhythm, No Edema, No Gallop, No JVD, Normal Peripheral Pulses, Systolic Murmur Neurologic/Psychiatric: Alert, No Motor/Sensory Deficits, navy diver II-XII Norm as Tested, Disoriented Skin: Normal Color, Warm/Dry Results/Procedures Lab Laboratory Tests 08/18/18 05:40 Patient resulted labs reviewed. Assessment/Plan Assessment and Plan Assess & Plan/Chief Complaint Assessment: Atrial fibrillation with rapid ventricular response now rate controlled on PO meds Volume overload placed on IV Lasix then changed to PO Known history of paroxysmal atrial fibrillation Hypertension Obstructive sleep apnea Dementia Depression Suicidal ideation prompting [facility] admission ARF Gross hematuria with possible clot retention now resolved since DC anticoagulation Plan Keep at [facility] until tomorrow Appreciate cardiology recommendations Anticoagulation DC due to hematuria Diuresis with Lasix but decrease dose Monitor closely [facility] admission once medically stable DC IVF Urology consultation is appreciated Poor prognosis Diagnosis/Problems Diagnosis/Problems (1) Atrial fibrillation with rapid ventricular response Status: Resolved Resolution Date/Time: 08/15/18 @ 15:25 (2) Volume overload Status: Resolved Resolution Date/Time: 08/18/18 @ 19:33 (3) Obstructive sleep apnea on CPAP Status: Chronic (4) Obesity Status: Chronic Qualifiers: Obesity type: due to excess calories Obesity classification: adult class 3 (BMI >= 40) Body mass index: BMI 40.0-44.9 (5) Dementia Status: Chronic Qualifiers: Dementia type: Alzheimer's disease Alzheimer's disease onset: unspecified onset Dementia behavioral disturbance: with behavioral disturbance Qualified Codes: G30.9 - Alzheimer's disease, unspecified; F02.81 - Dementia in other diseases classified elsewhere with behavioral disturbance (6) Depression Status: Acute Qualifiers: Depression Type: unspecified Qualified Codes: F32.9 - Major depressive disorder, single episode, unspecified (7) History of permanent cardiac pacemaker placement Status: Chronic (8) Requires supplemental oxygen Status: Chronic (9) Suicide ideation Status: Acute (10) Thrombocytopenia Status: Chronic (11) Hypomagnesemia Status: Acute (12) Renal failure Status: Acute (13) Hematuria Status: Resolved Qualifiers: Hematuria type: gross Qualified Codes: R31.0 - Gross hematuria Resolution Date/Time: 08/18/18 @ 19:33 (14) Hyperkalemia Status: Acute (15) Blood clot in bladder Status: Resolved Resolution Date/Time: 08/18/18 @ 19:33 (16) Confusion Status: Acute Clinical Quality Measures DVT/VTE Risk/Contraindication: Risk Factor Score Per Nursin RFS Level Per Nursing on Admit: 4+=Very High GANESH KERR MEDICAL STUDENT 08/18/18 1127: Subjective Subjective/Events-last exam Pt still confused, unable to answer questions rambling incoherent sentences pt afebrile questionable if patient is at baseline Objective Exam General Appearance: No Apparent Distress, WD/WN HEENT: PERRL/EOMI Neck: Supple Respiratory: No Respiratory Distress Cardiovascular: Regular Rate, Rhythm Neurologic/Psychiatric: Other (confused but alert to person, place and time) RODRIGO WOOD DO Aug 18, 2018 09:39 GANESH KERR MEDICAL STUDENT Aug 18, 2018 11:27
[2018-08-18] MEDS: MULTIVIT W/MINERALS TAB (THERAGRAN M) PO SCH (10:09)
--- NOTE | 2018-08-18 11:11 | Occupational Ther Daily Note ---
OT Current Status-Daily Note Subjective Pt sitting in chair finishing breakfast. Mental Status/Objective Patient Orientation: Confused Therapy Code Descriptions/Definitions Functional [place] Measure: 0=Not Assessed/NA 4=Minimal Assistance 1=Total Assistance 5=Supervision or Setup 2=Maximal Assistance 6=Modified [place] 3=Moderate Assistance 7=Complete [place] Attachments: Drummond Catheter, Oxygen ADL-Treatment Pt feeding self when therapist arrives. Pt able to drink from cup and feed self after set up. Pt washed face with set up and verbal cues. Pt attempted to comb hair. Able to reach sides, but requires assist to comb back of head. Pt is confused and talks about unrelated topics, requires cues to attend to task. Increased time for task completion. Assisted pt to reposition in chair. Pt sitting in chair with needs met after session. Eating (FIM): 5 Grooming (FIM): 4 OT Short Term Goals Short Term Goals Time Frame: Aug 31, 2018 Eating(FIM): 7 Grooming(FIM): 6 Bathing(FIM): 0 Upper Body Dressing(FIM): 5 Lower Body Dressing(FIM): 4 Toileting(FIM): 5 Transfers (B,C,W/C) (FIM): 6 Toilet/Commode Transfer(FIM): 6 Tub Transfer(FIM): 0 Shower Transfer(FIM): 5 Additional Short Term Goals: 1-Demonstrate ADL Tasks, 2-Verbalize Understanding , 3-ImproveStrength/Angela 1=Demonstrate adherence to instructed precautions during ADL tasks. 2=Patient will verbalize/demonstrate understanding of assistive devices/ modifications for ADL. 3=Patient will improve strength/tolerance for activity to enable patient to perform ADL's. OT Forging Press Setter Up Goals Forging Press Setter Up Goals Time Frame: Sep 14, 2018 Eating (FIM): 7 Grooming(FIM): 7 Bathing(FIM): 0 Upper Body Dressing(FIM): 6 Lower Body Dressing(FIM): 6 Toileting(FIM): 6 Transfers (B,C,W/C) (FIM): 6 Toilet/Commode Transfer(FIM): 6 Tub Transfer(FIM): 0 Shower Transfer(FIM): 6 Additional Goals: 1-Demonstrate ADL Tasks, 2-Verbalize Understanding, 3- ImproveStrength/Angela 1=Demonstrate adherence to instructed precautions during ADL tasks. 2=Patient will verbalize/demonstrate understanding of assistive devices/ modifications for ADL. 3=Patient will improve strength/tolerance for activity to enable patient to perform ADL's. OT Education/Plan Discharge Recommendations Plan/Recommendations: Continue POC Treatment Plan/Plan of Care Patient would benefit from OT for education, treatment and training to promote independence in ADL's, mobility, safety and/or upper extremity function for ADL' s. Plan of Care: ADL Retraining, Caregiver Training, Functional Mobility, UE Funct Exercise/Act Treatment Duration: Sep 14, 2018 Frequency: 5 times per week Estimated Hrs Per Day: .25 hour per day Agreement: Yes Rehab Potential: Good Time/GCodes Start Time: 10:38 Stop Time: 10:50 Total Time Billed (hr/min): 12 Billed Treatment Time 1 visit, ADL(12minutes) AIMEE PELLETIER OT Aug 18, 2018 11:11
--- NOTE | 2018-08-18 11:12 | Progress Note-Cardiology ---
Cardiology SOAP Progress Note Subjective: Sitting up in a chair at the bedside. Oriented to self only. No c/o CP or palpitations. C/O dyspnea. Objective: I&O/Vital Signs 08/18/18 08/18/18 08/18/18 07:14 08:50 13:19 Pulse 115 62 O2 Delivery Nasal Cannula O2 Flow Rate 5.00 08/18/18 00:00 Intake Total 2030 ml Output Total 1150 ml Balance 880 ml Weight (Pounds): 250 Weight (Ounces): 6.0 Weight (Calculated Kilograms): 113.981020 Constitutional: AAO x 3, well-developed, well-nourished, other (Oriented to self only) Respiratory: No accessory muscle use; other (good bilat air entry, somewhat diminished at the bases) Cardiovascular: irregularly irregular, S1 and S2, systolic murmur (2/6 CHAYO at card base) Gastrointestional: No tender; soft; No guarding, No rebound; audible bowel sounds Genital/Rectal: other (Urinary catheter to DD; hematuria) Extremities: No clubbing, No cyanosis; significant edema (bilat 2(+) pitting edema) Neurologic/Psychiatric: grossly intact, power is 5/5 both on sides Skin: No rash on exposed areas, No ulcerations on exposed areas Results/Procedures: Labs Laboratory Tests 08/18/18 05:40: White Blood Count 8.0, Red Blood Count 3.64L, Hemoglobin 12.4, Hematocrit 41, Mean Corpuscular Volume 112H, Mean Corpuscular Hemoglobin 34, Mean Corpuscular Hemoglobin Concent 31L, Red Cell Distribution Width 15.1H, Platelet Count 140, Mean Platelet Volume 11.1H, Neutrophils (%) (Auto) 72, Lymphocytes (%) (Auto) 16 , Monocytes (%) (Auto) 11, Eosinophils (%) (Auto) 1, Basophils (%) (Auto) 0, Neutrophils # (Auto) 5.8, Lymphocytes # (Auto) 1.2, Monocytes # (Auto) 0.8, Eosinophils # (Auto) 0.1, Basophils # (Auto) 0.0, Sodium Level 143, Potassium Level 5.2H, Chloride Level 99, Carbon Dioxide Level 33H, Anion Gap 11, Blood Urea Nitrogen 55H, Creatinine 1.37H, Estimat Glomerular Filtration Rate 38, BUN/ Creatinine Ratio 40, Glucose Level 127H, Calcium Level 9.7, Corrected Calcium 10.1, Total Bilirubin 0.8, Aspartate Amino Transf (AST/SGOT) 29, Alanine Aminotransferase (ALT/SGPT) 25, Alkaline Phosphatase 56, Total Protein 6.8, Albumin 3.5 Microbiology 08/13/18 MRSA Screen - Final, Complete MRSA not isolated Procedures NAME: LEIGHA [facility] REC#: [id number] PT STATUS: ADM IN : 1950 PHYSICIAN: CAMILLE FLOWERS MD ADMIT DATE: 08/13/18 Signed Date of Exam: 08/17/18 CT ABDOMEN/PELVIS WO PROCEDURE: CT abdomen and pelvis without contrast. TECHNIQUE: Multiple contiguous axial images were obtained through the abdomen and pelvis without the use of intravenous contrast. INDICATION: Hematuria. COMPARISON: None. FINDINGS: Cardiomegaly. Sternotomy. Cardiac pacer. [place] right diaphragmatic hernia contains a loop of colon. The liver, gallbladder, pancreas, spleen, adrenals, kidneys, collecting systems are negative on this noncontrast exam. The bladder is decompressed by Drummond catheter. Reproductive structures are grossly unremarkable. Normal appendix. No free intraperitoneal air or fluid. No lymphadenopathy. No evidence of bowel obstruction. Chronic left rib fractures. No acute osseous findings. IMPRESSION: No acute CT findings in the abdomen or pelvis on this noncontrast exam. Specifically, the kidneys and collecting systems are unremarkable. The bladder is decompressed by Drummond catheter. Additional chronic and incidental findings as above. Dictated by: Dictated on workstation # [id number] Dict: 08/17/181906 Trans: 08/17/182142 Interpreted by: SINCERE ANDERSON MD Electronically signed by: SINCERE ANDERSON MD 08/17/182142 A/P: Assessment: Chronic A Fib with RVR, better controlled after addition of long-acting CCB to her chronic regimen of beta-blockers Hematuria Ac renal failure and hyperkalemia - renal function improve and potassium improved H/o TOF repair in the 1970s at the [facility] (details unknown) H/o pacemaker placement in or around 2009 in [place] (followed by her channeler insole in [place], [place]; last interrogated Jun 2018, next interrog Sep 2018) Pulmonary hypertension. Echo of 08/15/18 shows PASP 55 mmHg Ac on chronic CHF, diastolic. Echo of 08/15/18 shows LVEF 60-65% Obesity with BMI approx 44 Chronic hypoxemia: prob obesity-hypovent. Has known MARILYNN that is treated with CPAP Depression Plan: * We reviewed her CV issues with her and answered questions * OAC currently being withheld d/t hematuria - Dr. Flowers consulted by medical services * Continue current regimen * Hyperkalemia - improved * Bilat LE swelling and dyspnea - give IV Lasix today * HR increased - blood pressure improved - resume BB at lower dose and titrate as indicated * Monitor lab Physician Assessment Physician Assessment Somnolent. Does not report any symptoms Lungs: fair to good air entry Cor: irreg Ext: mild edema A&R * As documented in our note above that I updated (italics) and as noted below * Monitor labs * Resume anticoag when source of hematuria treated PATSY LO Aug 18, 2018 11:12 ANDRES CANO MD FACP FAC CCDS Aug 18, 2018 17:17
[2018-08-18] MEDS ORDERED: FUROSEMIDE 40 MG/4 ML INJ (LASIX) IVP NR (11:23)
[2018-08-18] MEDS ORDERED: meTOprolol TARTRATE 25 MG (LOPRESSOR) TABLET PO NR (11:25)
--- NOTE | 2018-08-18 12:08 | Physical Therapy Daily Note ---
PT Daily Note-Current Subjective Pt is upright in recliner talking to nurse. PT notes confusion. Pt agrees to PT. Pain Numeric Pain Scale: 0-No Pain Location: No Pain Reported Mental Status Patient Orientation: Confused Attachments: Drummond Catheter, IV Transfers Therapy Code Descriptions/Definitions Functional Luna Measure: 0=Not Assessed/NA 4=Minimal Assistance 1=Total Assistance 5=Supervision or Setup 2=Maximal Assistance 6=Modified Luna 3=Moderate Assistance 7=Complete Luna Therapy Quality Codes: 6 Independent with activity with or without an assistive device 5 Patient requires set up or clean up by helper. Patient completes activity by themselves 4 Supervision or touching assist (CGA). [place] provide cues , steadying assist 3 The helper provides less than half the effort to complete the activity 2 The helper provides more than half the effort to complete the activity 1 Dependent. The helper does all the effort to complete an activity 7 Patient refused to complete or attempt activity 9 The patient did not perform the activity before the current illness or injury 88 Not attempted due to Medical conditions or safety concerns Weight Bearing Right Lower Extremity: Right Full Weight Bearing Left Lower Extremity: Left Full Weight Bearing Exercises Seated Therapy Exercises: Ankle pumps, Long arc quads, Hip flexion, Hip abd/add , Glut set Seated Reps: 15 Assessment Current Status: Poor Progress Pt was able to perform seated ex in recliner and needed cues to focus on task. Pt is in recliner with all needs met. PT to progress as pt is able to tolerate more activity. PT Short Term Goals Short Term Goals Time Frame: Aug 22, 2018 Transfers (B,C,W/C) (FIM): 6 Gait (FIM): 6 Distance (FIM): 3=150 ft Gait Distance Comment: 150ft Gait Level of Assist: 6 Gait Assistive Device: Walker 4 Wheeled PT Plan Problem List Problem List: Activity Tolerance, Functional Strength, Safety, Gait, Transfer, Bed Mobility Treatment/Plan Treatment Plan: Continue Plan of Care Treatment Plan: Bed Mobility, Functional Activity Angela, Functional Strength, Gait, Safety, Therapeutic Exercise Treatment Duration: Aug 22, 2018 Frequency: 5 times per week Estimated Hrs Per Day: .25 hour per day Patient and/or Family Agrees t: Yes Time/GCodes Time In: 1131 Time Out: 1139 Total Billed Treatment Time: 8 Total Billed Treatment 1 visit Ex 8 min CHANDNI SILVESTRE PT Aug 18, 2018 12:08
--- NOTE | 2018-08-18 15:24 | NUR ---
Pastoral Care Visit.
[2018-08-18 16:10] VITALS: BP 139/62
--- NOTE | 2018-08-18 16:12 | NUR ---
1600 PUT NOTED TO HAVE PULLED IV OUT OF LEFT HAND, PT TALKING NONSENSE, IS MUMBLING TO HERSELF, PT ASSISTED TO BED BY THIS RN AND PCT. IVF CONNECTED TO IV IN RIGHT HAND, PT POSITIONED FOR COMFORT, XANAX GIVEN. CALL LIGHT AND OTHER PERSONAL ITEMS WITHIN REACH WILL CONTINUE TO MONITOR.
[2018-08-18] MEDS: risperiDONE 0.25 MG (RisperDAL) TAB PO SCH ×2 (16:45→20:52)
--- NOTE | 2018-08-18 16:48 | NUR ---
1630 DR WOOD NOTIFIED THAT'S PT HAD PULLED OUT IV AND HAS BEEN MUMBLING TO SELF. NEW ORDERS RECEIVED SEE ORDER HX.
[2018-08-18 20:05] VITALS: BP 124/59
[2018-08-18] MEDS: GABAPENTIN 100 MG (NEURONTIN) CAP PO SCH (20:51)
[2018-08-18] MEDS: DULoxetine 30 MG (CYMBALTA) CAP PO SCH (20:52)
[2018-08-18] MEDS: meTOprolol TARTRATE 25 MG (LOPRESSOR) TABLET PO SCH (20:52)
[2018-08-19 00:14] VITALS: BP 118/54
[2018-08-19 03:54] VITALS: BP 128/73
[2018-08-19 06:01] LABS: BASOPHILS % (AUTO) 0 % (0-10); EOSINOPHILS # (AUTO) 0.1 10^3/uL (0.0-0.3); EOSINOPHILS % (AUTO) 2 % (0-10); HEMATOCRIT 38 % (35-52); HEMOGLOBIN 10.9 G/DL (11.5-16.0); LYMPHOCYTES # (AUTO) 0.9 X 10^3 (1.0-4.0); LYMPHOCYTES % (AUTO) 18 % (12-44); MEAN CORPUSCULAR HEMOGLOBIN 33 PG (25-34); MEAN CORPUSCULAR HGB CONC 29 G/DL (32-36); MEAN CORPUSCULAR VOLUME 114 FL (80-99); MEAN PLATELET VOLUME 10.8 FL (7.4-10.4); MONOCYTES # (AUTO) 0.6 X 10^3 (0.0-1.0); MONOCYTES % (AUTO) 12 % (0-12); NEUTROPHILS # (AUTO) 3.2 X 10^3 (1.8-7.8); NEUTROPHILS % (AUTO) 68 % (42-75); PLATELET COUNT 123 10^3/uL (130-400); RED BLOOD COUNT 3.31 10^6/uL (4.35-5.85); RED CELL DISTRIBUTION WIDTH 15.3 % (10.0-14.5); WHITE BLOOD COUNT 4.8 10^3/uL (4.3-11.0)
[2018-08-19 06:17] LABS: ALBUMIN 3.1 GM/DL (3.2-4.5); BILIRUBIN,TOTAL 0.5 MG/DL (0.1-1.0); CALCIUM 9.6 MG/DL (8.5-10.1); CREATININE SERUM 1.14 MG/DL (0.60-1.30); POTASSIUM 5.1 MMOL/L (3.6-5.0); TOTAL PROTEIN 5.9 GM/DL (6.4-8.2)
[2018-08-19] MEDS: meTOprolol TARTRATE 25 MG (LOPRESSOR) TABLET PO SCH (09:37)
[2018-08-19] MEDS: MULTIVIT W/MINERALS TAB (THERAGRAN M) PO SCH (09:37)
[2018-08-19] MEDS: ASPIRIN E.C. 81 MG (ECOTRIN) TAB PO SCH (09:38)
[2018-08-19] MEDS: ALLOPURINOL 100 MG (ZYLOPRIM) TAB PO SCH (09:38)
[2018-08-19] MEDS: CALCIUM CARB + VIT D 600 MG (CALCARB + D) TAB PO SCH (09:38)
[2018-08-19] MEDS: busPIRone 5 MG (BUSPAR) TAB PO SCH (09:38)
[2018-08-19] MEDS: DILTIAZEM 180 MG (CARDIZEM CD) CAP PO SCH (09:38)
[2018-08-19] MEDS: risperiDONE 0.25 MG (RisperDAL) TAB PO SCH (09:38)
[2018-08-19 09:39] LABS: BILIRUBIN,URINE NEGATIVE (NEGATIVE); CLARITY,URINE CLEAR; COLOR,URINE YELLOW; GLUCOSE, URINE (UA) NEGATIVE (NEGATIVE); KETONES,URINE NEGATIVE (NEGATIVE); LEUKOCYTE ESTERASE ,URINE 3+ (NEGATIVE); NITRITE,URINE POSITIVE (NEGATIVE); PH,URINE 5 (5-9); PROTEIN,URINE 3+ (NEGATIVE); UROBILINOGEN,URINE 1 MG/DL (NORMAL)
--- NOTE | 2018-08-19 09:52 | Progress Note-Hospitalist ---
WOODRODRIGO 08/19/18 0952: Subjective HPI/CC On Admission Date Seen by Provider: Aug 19, 2018 Time Seen by Provider: 09:45 CC: Atrial fibrillation with rapid ventricular response with volume overload HPI: This is a 68-year-old white female who was on track for admission to [facility] behavioral [facility] last evening but when she presented to the ER for medical screening she was found to have heart rate of 150 with atrial fibrillation with rapid ventricular response and a known history of paroxysmal atrial fibrillation along with repair of tetralogy of fallot in 1971 with anasarca noted an elevated BNP and hypoxia prompting cardiology evaluation and management transferred to via [facility] ICU. Dr. Nunez to see the patient in consultation and recommended placement of Eliquis for anticoagulation for stroke prophylaxis and maintained on Cardizem drip that has been since converted to oral Cardizem along with oral Lasix after IV Lasix with successful and diuresis. She does have dementia and she denied any history of suicidal ideation statements but she changes her story is quite frequently due to dementia. Bettina Zavala is her primary care provider in [place]. Subjective/Events-last exam Confusion persists CT brain ordered but doubt she has had a vascular event UA obtained due to the color of it and it appears that there are TNTC wbc's so will empirically start Rocephin SBG rescreened and she can't participate in questions now Creat improved Lasix limited due to ARF 3 days ago Review of Systems Neurological: Confusion Focused Exam Lactate Level 08/16/18 15:20: Lactic Acid Level 0.87 Objective Exam Vital Signs Vital Signs Date Time Temp Pulse Resp B/P (MAP) Pulse Ox O2 Delivery O2 Flow Rate FiO2 08/19/18 07:00 104 08/19/18 03:54 98.3 20 128/73 (91) 90 High Flow N/C 5.00 Capillary Refill : Less Than 3 Seconds General Appearance: No Apparent Distress, WD/WN, Chronically ill, Obese Respiratory: Chest Non Tender, Lungs Clear, Normal Breath Sounds, No Accessory Muscle Use, No Respiratory Distress Cardiovascular: Regular Rate, Rhythm, No Edema, No Gallop, No JVD, Normal Peripheral Pulses, Systolic Murmur Neurologic/Psychiatric: Alert, Disoriented Skin: Normal Color, Warm/Dry Results/Procedures Lab Laboratory Tests 08/19/18 05:35 Patient resulted labs reviewed. Assessment/Plan Assessment and Plan Assess & Plan/Chief Complaint Assessment: Atrial fibrillation with rapid ventricular response now rate controlled on PO meds Volume overload placed on IV Lasix then changed to PO Known history of paroxysmal atrial fibrillation Hypertension Obstructive sleep apnea Dementia Depression Suicidal ideation prompting Maura psych admission ARF Gross hematuria with possible clot retention now resolved since DC anticoagulation Acute UTI placed on Rocephin Plan Keep at [facility] and place on swing bed to improve mentation and treat UTI Appreciate cardiology recommendations Anticoagulation DC due to hematuria Diuresis with Lasix but decrease dose Monitor closely Maura psych admission once medically stable Urology consultation is appreciated Poor prognosis Swing bed Diagnosis/Problems Diagnosis/Problems (1) UTI (urinary tract infection) Status: Acute Qualifiers: Urinary tract infection type: acute cystitis Hematuria presence: with hematuria Qualified Codes: N30.01 - Acute cystitis with hematuria (2) Atrial fibrillation with rapid ventricular response Status: Resolved Resolution Date/Time: 08/15/18 @ 15:25 (3) Volume overload Status: Resolved Qualifiers: Hypervolemia type: unspecified Qualified Codes: E87.70 - Fluid overload, unspecified Resolution Date/Time: 08/18/18 @ 19:33 (4) Obstructive sleep apnea on CPAP Status: Chronic (5) Obesity Status: Chronic Qualifiers: Obesity type: due to excess calories Obesity classification: adult class 3 (BMI >= 40) Body mass index: BMI 40.0-44.9 (6) Dementia Status: Chronic Qualifiers: Dementia type: Alzheimer's disease Alzheimer's disease onset: unspecified onset Dementia behavioral disturbance: with behavioral disturbance Qualified Codes: G30.9 - Alzheimer's disease, unspecified; F02.81 - Dementia in other diseases classified elsewhere with behavioral disturbance (7) Depression Status: Acute Qualifiers: Depression Type: unspecified Qualified Codes: F32.9 - Major depressive disorder, single episode, unspecified (8) History of permanent cardiac pacemaker placement Status: Chronic (9) Requires supplemental oxygen Status: Chronic (10) Suicide ideation Status: Acute (11) Thrombocytopenia Status: Chronic (12) Hypomagnesemia Status: Acute (13) Renal failure Status: Acute (14) Hematuria Status: Resolved Qualifiers: Hematuria type: gross Qualified Codes: R31.0 - Gross hematuria Resolution Date/Time: 08/18/18 @ 19:33 (15) Hyperkalemia Status: Acute (16) Blood clot in bladder Status: Resolved Resolution Date/Time: 08/18/18 @ 19:33 (17) Confusion Status: Acute Clinical Quality Measures DVT/VTE Risk/Contraindication: Risk Factor Score Per Nursin RFS Level Per Nursing on Admit: 4+=Very High GANESH KERR MEDICAL STUDENT 08/19/18 1043: Subjective Subjective/Events-last exam Pt at her baseline mental status No complaints at this time Pt afebrile Objective Exam General Appearance: Mild Distress HEENT: PERRL/EOMI Neck: Full Range of Motion, Supple Respiratory: Lungs Clear, No Respiratory Distress Cardiovascular: Regular Rate, Rhythm, No Murmur Neurologic/Psychiatric: Alert, Oriented x3 (but confused - baseline for pt) Skin: Normal Color, Warm/Dry RODRIGO WOOD DO Aug 19, 2018 09:52 GANESH KERR MEDICAL STUDENT Aug 19, 2018 10:43
[2018-08-19 09:57] LABS: BACTERIA,URINE MODERATE /HPF; RBC,URINE >100 /HPF; SQUAMOUS EPITHELIAL CELL,UR RARE /HPF; WBC,URINE >100 /HPF
--- NOTE | 2018-08-19 10:31 | Progress Note-Cardiology ---
Cardiology SOAP Progress Note Subjective: Sitting up in chair moaning. Lethargic. Unable to obtain any information from pt. Objective: I&O/Vital Signs 08/19/18 08/19/18 08/19/18 07:00 08:45 13:00 Pulse 104 75 O2 Delivery Nasal Cannula O2 Flow Rate 5.00 08/19/18 00:00 Intake Total 800 ml Output Total 925 ml Balance -125 ml Weight (Pounds): 249 Weight (Ounces): 6.0 Weight (Calculated Kilograms): 112.641971 Constitutional: AAO x 3, well-developed, well-nourished, other (moans when spoken to, unable to obtain any information) Respiratory: No accessory muscle use; other (fair bilat air entry, somewhat diminished at the bases) Cardiovascular: irregularly irregular, S1 and S2, systolic murmur (2/6 CHAYO at card base) Gastrointestional: No tender; soft; No guarding, No rebound; audible bowel sounds Extremities: No clubbing, No cyanosis; significant edema (mod bilat LE swelling ) Neurologic/Psychiatric: grossly intact, power is 5/5 both on sides Skin: No rash on exposed areas, No ulcerations on exposed areas Results/Procedures: Labs Laboratory Tests 08/19/18 05:35: White Blood Count 4.8, Red Blood Count 3.31L, Hemoglobin 10.9L, Hematocrit 38, Mean Corpuscular Volume 114H, Mean Corpuscular Hemoglobin 33, Mean Corpuscular Hemoglobin Concent 29L, Red Cell Distribution Width 15.3H, Platelet Count 123L, Mean Platelet Volume 10.8H, Neutrophils (%) (Auto) 68, Lymphocytes (%) (Auto) 18 , Monocytes (%) (Auto) 12, Eosinophils (%) (Auto) 2, Basophils (%) (Auto) 0, Neutrophils # (Auto) 3.2, Lymphocytes # (Auto) 0.9L, Monocytes # (Auto) 0.6, Eosinophils # (Auto) 0.1, Basophils # (Auto) 0.0, Sodium Level 146H, Potassium Level 5.1H, Chloride Level 102, Carbon Dioxide Level 35H, Anion Gap 9, Blood Urea Nitrogen 58H, Creatinine 1.14, Estimat Glomerular Filtration Rate 48, BUN/ Creatinine Ratio 51, Glucose Level 111H, Calcium Level 9.6, Corrected Calcium 10.3H, Total Bilirubin 0.5, Aspartate Amino Transf (AST/SGOT) 25, Alanine Aminotransferase (ALT/SGPT) 21, Alkaline Phosphatase 52, Total Protein 5.9L, Albumin 3.1L 08/19/18 09:30: Urine Color YELLOW, Urine Clarity CLEAR, Urine pH 5, Urine Specific [place] 1.020, Urine Protein 3+H, Urine Glucose (UA) NEGATIVE, Urine Ketones NEGATIVE, Urine Nitrite POSITIVEH, Urine Bilirubin NEGATIVE, Urine Urobilinogen 1, Urine Leukocyte Esterase 3+H, Urine RBC (Auto) 5+H, Urine RBC >100H, Urine WBC >100H, Urine Squamous Epithelial Cells RARE, Urine Crystals NONE, Urine Bacteria MODERATEH, Urine Casts NONE, Urine Mucus NEGATIVE, Urine Culture Indicated YES Microbiology 08/13/18 MRSA Screen - Final, Complete MRSA not isolated A/P: Assessment: Change in level of consciousness, probably due to UTI with poss urosepsis that the Med Svce is managing Chronic A Fib with RVR, better controlled after addition of long-acting CCB to her chronic regimen of beta-blockers Hematuria - management per urology services Ac renal failure and hyperkalemia - renal function improve and potassium improved H/o TOF repair in the 1970s at the [facility] (details unknown) H/o pacemaker placement in or around 2009 in [place] (followed by her horse show judge in [place], [place]; last interrogated Jun 2018, next interrog Sep 2018) Pulmonary hypertension. Echo of 08/15/18 shows PASP 55 mmHg Ac on chronic CHF, diastolic. Echo of 08/15/18 shows LVEF 60-65% Obesity with BMI approx 44 Chronic hypoxemia: prob obesity-hypovent. Has known MARILYNN that is treated with CPAP Depression Mild thrombocytopenia with mild anemia of undetermined etiology Plan: * Decreased level of consciousness, possibly d/t UTI * Advise CT of the head * Mild hypernatremia * Possible urosepsis - UTI - management per medical services * OAC currently being withheld d/t hematuria - Dr. Winkler consulted by medical services * Continue current regimen * Hyperkalemia - improved * Monitor lab Physician Assessment Physician Assessment Appears confused. Reports shortness of breath. Doesn't report cp or pal Lungs: fair air entry bilat Cor: irreg Ext: no c/c. Mild bilat edema A&R * As documented in our note above that I updated (italics) and as noted below * Monitor labs * Continue current regimen PATSY LO SENIOR ACCOUNTING ANALYST Aug 19, 2018 10:31 ANDRES CANO MD FACP [facility] CCDS Aug 19, 2018 18:51
--- NOTE | 2018-08-19 10:54 | NUR ---
CM/SS, continuing intermittent review as it pertains to post hospital care plan. Physician has coordinated a new screening today for [facility]. Depending on results, will need to consider disposition destination if not to psychiatric unit, home vs fpc placement.
--- NOTE | 2018-08-19 11:20 | Discharge Summary-Hospitalist ---
Diagnosis/Chief Complaint Date of Admission Aug 13, 2018 at 20:50 Date of Discharge Admission Diagnosis Assessment: Atrial fibrillation with rapid ventricular response Volume overload placed on IV Lasix Known history of paroxysmal atrial fibrillation Hypertension Obstructive sleep apnea Dementia Depression Suicidal ideation prompting Maura psych admission Plan Transfer to fourth floor Appreciate cardiology recommendations Anticoagulation Diuresis with by mouth Lasix Monitor closely Maura psych admission once medically stable Discharge Diagnosis (1) UTI (urinary tract infection) Status: Acute (2) Atrial fibrillation with rapid ventricular response Status: Resolved (3) Volume overload Status: Resolved (4) Obstructive sleep apnea on CPAP Status: Chronic (5) Obesity Status: Chronic (6) Dementia Status: Chronic (7) Depression Status: Acute (8) History of permanent cardiac pacemaker placement Status: Chronic (9) Requires supplemental oxygen Status: Chronic (10) Suicide ideation Status: Acute (11) Thrombocytopenia Status: Chronic (12) Hypomagnesemia Status: Acute (13) Renal failure Status: Acute (14) Hematuria Status: Resolved (15) Hyperkalemia Status: Acute (16) Blood clot in bladder Status: Resolved (17) Confusion Status: Acute Discharge Summary Discharge Physical Exam Allergies: Coded Allergies: No Known Drug Allergies (Unverified , 08/13/18) Vitals & I&Os Vital Signs Date Time Temp Pulse Resp B/P (MAP) Pulse Ox O2 Delivery O2 Flow Rate FiO2 08/19/18 13:00 75 08/19/18 08:45 Nasal Cannula 5.00 08/19/18 03:54 98.3 20 128/73 (91) 90 General Appearance: No Apparent Distress, WD/WN, Chronically ill, Obese Respiratory: Chest Non Tender, Lungs Clear, No Accessory Muscle Use, No Respiratory Distress, Decreased Breath Sounds Cardiovascular: Regular Rate, Rhythm, No Gallop, No JVD, No Murmur, Normal Peripheral Pulses Extremity: Pedal Edema Neurologic/Psychiatric: Alert, Disoriented Hospital Course Hospital course: patient had an uneventful hospital course although complex given cardiac and pulmonary dysfunction. She arrived to ICU from [facility] due to AF w /RVR and placed on Cardizem drip and Cardiology was able to gain rate control. IV diuresis initiated with IV Lasix along with anticoagulation but had ARF creat and gross hematuria precluded the continued use of those meds. UTI dx in need of IV abx until UCx completed. Overall prognosis is poor given dementia and co-morbidities. Pt will remain on swing bed and monitored closely for elevated creatinine and resp insufficiency Labs (last 24 hrs) Microbiology 08/13/18 MRSA Screen - Final, Complete MRSA not isolated Patient resulted labs reviewed. Pending Labs Discussion & Recommendations Discharge Planning: <30 minutes discharge planning Discharge Home Medications: Active Scripts Active Reported Miralax (Polyethylene Glycol 3350) 17 Gm Powd.pack 17 Gm PO UD PRN Proair Hfa (Albuterol Sulfate) 1 Puff Puff 2 Puff IH TID PRN Aleve (Naproxen Sodium) 220 Mg Tablet 220 Mg PO BID PRN Tums (Calcium Carbonate) 200 Mg Tab.chew 200 Mg PO TID PRN Imodium A-D (Loperamide HCl) 2 Mg Capsule PO UD PRN TAKE 2 CAPLETS AFTER 1ST LOOSE BM AND 1 AFTER EACH SUBSEQUENT Promethazine Tablet (Promethazine HCl) 25 Mg Tablet 25 Mg PO Q6H PRN Tylenol Extra Strength (Acetaminophen) 500 Mg Tablet 1,000 Mg PO Q4H PRN Colace (Docusate Sodium) 100 Mg Capsule 200 Mg PO DAILY PRN Ultram (Tramadol HCl) 50 Mg Tablet 50 Mg PO EVERY 6-8 HOURS PRN Buspirone HCl 5 Mg Tablet 5 Mg PO BID Cymbalta (Duloxetine HCl) 30 Mg Capsule.dr 30 Mg PO 2000 Daily Vitamin Formula (Multivitamin) 1 Each Tablet 1 Tab PO DAILY Lisinopril 40 Mg Tablet 40 Mg PO DAILY Potassium Chloride 10 Meq Capsule.er 10 Meq PO Q48H Furosemide 20 Mg Tablet 20 Mg PO Q48H Aspirin EC (Aspirin) 81 Mg Tablet.dr 162 Mg PO DAILY Actonel (Risedronate) 35 Mg Tab 35 Mg PO WE Allopurinol 300 Mg Tablet 150 Mg PO DAILY Lopressor (Metoprolol Tartrate) 50 Mg Tablet 50 Mg PO BID Caltrate 600 + D Tablet (Calcium Carbonate/Vitamin D3) 1 Each Tablet 1 Tab PO BID Gabapentin 100 Mg Capsule 200 Mg PO 1999 Instructions to patient/family Please see electronic discharge instructions given to patient. Clinical Quality Measures DVT/VTE Risk/Contraindication: Risk Factor Score Per Nursin RFS Level Per Nursing on Admit: 4+=Very High Problem Qualifiers (1) UTI (urinary tract infection): Urinary tract infection type: acute cystitis Hematuria presence: with hematuria Qualified Codes: N30.01 - Acute cystitis with hematuria (2) Volume overload: Hypervolemia type: unspecified Qualified Codes: E87.70 - Fluid overload, unspecified (3) Obesity: Obesity type: due to excess calories Obesity classification: adult class 3 ( BMI >= 40) Body mass index: BMI 40.0-44.9 (4) Dementia: Dementia type: Alzheimer's disease Alzheimer's disease onset: unspecified onset Dementia behavioral disturbance: with behavioral disturbance Qualified Codes: G30.9 - Alzheimer's disease, unspecified; F02.81 - Dementia in other diseases classified elsewhere with behavioral disturbance (5) Depression: Depression Type: unspecified Qualified Codes: F32.9 - Major depressive disorder, single episode, unspecified (6) Renal failure: Renal failure chronicity: acute on chronic Chronic kidney disease stage: stage 2 (mild) (7) Hematuria: Hematuria type: gross Qualified Codes: R31.0 - Gross hematuria RODRIGO WOOD DO Aug 19, 2018 11:20
[2018-08-19] MEDS ORDERED: cefTRIAXone FOR IV USE 1,000 MG in NS (IVPB) 50 ML IV NR (11:22)
--- NOTE | 2018-08-19 11:33 | NUR ---
Swing Bed Note: Qualifies for swing bed for continued need for IV abx (UTI) et continued need for Physical et Occupational therapies. Recommend consideration for Speech therapy to evaluate and treat. Will admit to swing bed today 08/19/18. Thank you for this referral!
--- NOTE | 2018-08-19 11:51 | NUR ---
Attempted to contact patient's sister Leisa's sister Corina. Message left but historically have not been able to reach her.
[2018-08-19] MEDS ORDERED: RISEDRONATE 35 MG PO SCH (12:00)
--- NOTE | 2018-08-19 13:19 | Progress Note-Urology ---
Progress Note-Urology Progress Notes/Assess & Plan Progress/Assessment & Plan PLAN CYSTOSCOPY TOMORROW AT BEDSIDE, FLEXIBLE, NO NPO Final Diagnosis GROSS HEMATURIA CAMILLE FLOWERS MD Aug 19, 2018 13:19
--- NOTE | 2018-08-19 13:50 | NUR ---
CM/SS. Patient has established residency with [facility] in [place]. [facility] also has a custodial facility at a different location in town if that level of care was needed for patient. Plan is transferring to [facility] today, will continue to follow for appropriate level of care.
--- NOTE | 2018-08-19 13:56 | NUR ---
SPOKE TO PATIENT'S SISTER LYNN REGARDING CONSENT FOR CYSTOSCOPY THAT HAS BEEN ORDERED BY DR FLOWERS. PT'S SISTER STATES THAT " I'M PRETTY SURE SHE HAD THAT DONE RECENTLY" SISTER IS TO CHECK ON IT AND OBTAIN RECORDS IF IN FACT IT HAS BEEN DONE AND LET THIS RN KNOW.
--- NOTE | 2018-08-19 14:00 | NUR ---
F/U with patient's sister Corina who gave telephone consent to access swing bed benefits.
[2018-08-19] MEDS ORDERED: NS 100 ML (IVPB) BAG IV ONE (14:15)
[2018-08-19] MEDS ORDERED: RECEIVED CONTRAST (Hold Metformin) IV SCH (14:15)
[2018-08-19] MEDS ORDERED: IOHEXOL 350 MG/ML 100 ML (OMNIPAQUE 350) VIAL IV ONE (14:15)
--- NOTE | 2018-08-19 15:19 | Diagnostic Imaging Report ---
CLINICAL INDICATION: Patient with A. fib with rapid ventricular response. Patient has decreased level of consciousness. EXAM: Axial CT scan of brain performed without and with 80 cc of Omnipaque 350 IV contrast. COMPARISON: None. FINDINGS: There is skull streak artifact which obscures portions of brainstem, posterior fossa, and portion of the brain near the skull base. There is no evidence of acute cerebral infarct, intracranial hemorrhage, or gross mass effect. There is no abnormal IV contrast enhancement. The brain parenchymal volume appears appropriate for patient's age. There are several focal areas of low-attenuation white matter changes involving both cerebral hemispheres, likely representing chronic small vessel ischemic disease. There is normal dee-white matter distinction. There is no significant midline shift or herniation. The [place] of [place] vascular structures show no gross abnormality as visualized. There is no evidence of hydrocephalus. The basal cisterns are unremarkable. The skull, extracranial soft tissue, and orbits are unremarkable. There are small amount of fluid in the sphenoid sinus. Temporal bones show no significant abnormality. IMPRESSION: 1: Unremarkable CT scan of the brain for age with no acute intracranial process. There is no abnormal IV contrast enhancement. 2: Mild sphenoid sinus disease. Dictated by: Dictated on workstation # [id number]
[2018-08-20] MEDS ORDERED: cefTRIAXone FOR IV USE 1,000 MG in NS (IVPB) 50 ML IV SCH (09:00)
--- NOTE | 2018-08-20 13:45 | Progress Note-Cardiology ---
Cardiology SOAP Progress Note Subjective: Confused and doesn't answer questions Objective: Weight (Pounds): 249 Weight (Ounces): 6.0 Weight (Calculated Kilograms): 112.533080 Constitutional: No AAO x 3; well-developed, well-nourished Respiratory: No accessory muscle use; other (fair bilat air entry, somewhat diminished at the bases) Cardiovascular: irregularly irregular, S1 and S2, systolic murmur (2/6 CHAYO at card base) Gastrointestional: No tender; soft; No guarding, No rebound; audible bowel sounds Extremities: No clubbing, No cyanosis; significant edema (mod bilat LE swelling ) Neurologic/Psychiatric: grossly intact, power is 5/5 both on sides Skin: No rash on exposed areas, No ulcerations on exposed areas Results/Procedures: Labs Microbiology 08/13/18 MRSA Screen - Final, Complete MRSA not isolated 08/19/18 Urine Culture - Preliminary, Resulted Escherichia coli Laboratory Tests 08/19/18 05:35 A/P: Assessment: Change in level of consciousness, probably due to UTI with poss urosepsis that the Med Svce is managing Chronic A Fib with RVR, better controlled after addition of long-acting CCB to her chronic regimen of beta-blockers Hematuria - management per Dr Wright and the Urology Svce Ac renal failure and hyperkalemia - renal function improved and potassium improved H/o TOF repair in the 1970s at the [facility] (details unknown) H/o pacemaker placement in or around 2009 in [place] (followed by her image scientist in [place], [place]; last interrogated Jun 2018, next interrog Sep 2018) Pulmonary hypertension. Echo of 08/15/18 shows PASP 55 mmHg Chronic CHF, diastolic. Echo of 08/15/18 shows LVEF 60-65% Obesity with BMI approx 44 Chronic hypoxemia: prob obesity-hypovent. Has known MARILYNN that is treated with CPAP Depression Mild thrombocytopenia with mild anemia of undetermined etiology Plan: * Complex management due to multiple comorbidities * I had a detailed discussion with Dr Wright today * Continue CCB for rate control * Consider adding OAC back if source of hematuria fully treated ANDRES CANO MD FACP [facility] Aug 20, 2018 13:45
== END 2018-08-19 13:58 | disposition swing bed (61) | DRG 308 ==
LOC: ICU 20:50 → 4TH 08-15 12:45
PROVIDERS: ADMIT Internal Medicine; ATTEND Internal Medicine
DX: I48.0 Paroxysmal atrial fibrillation (principal); I13.0 Hypertensive heart and chronic kidney disease with heart failure and stage 1 through stage 4 chronic kidney disease, or unspecified chronic kidney disease; I50.33 Acute on chronic diastolic (congestive) heart failure; N18.2 Chronic kidney disease, stage 2 (mild); E66.2 Morbid (severe) obesity with alveolar hypoventilation; Z68.41 Body mass index [BMI] 40.0-44.9, adult; N17.9 Acute kidney failure, unspecified; N30.01 Acute cystitis with hematuria; Z66 Do not resuscitate; R09.02 Hypoxemia; F32.9 Major depressive disorder, single episode, unspecified; R45.851 Suicidal ideations; M54.9 Dorsalgia, unspecified; Z99.81 Dependence on supplemental oxygen; Z95.0 Presence of cardiac pacemaker; Z87.74 Personal history of (corrected) congenital malformations of heart and circulatory system; G30.9 Alzheimer's disease, unspecified; F02.81 Dementia in other diseases classified elsewhere, unspecified severity, with behavioral disturbance; D69.6 Thrombocytopenia, unspecified; E83.42 Hypomagnesemia; I27.20 Pulmonary hypertension, unspecified; N32.89 Other specified disorders of bladder
CPT/HCPCS: 36415; 70470; 71045; 74176; 76770; 80048; 80053; 81000; 82962; 83605; 83735; 84100; 85025; 87077; 87081; 87088; 93306; 94760

== ENCOUNTER 2018-08-19 14:17 | Inpatient (IN) | payer MEDICARE, MEDICAID | END 2018-08-20 18:10 | disposition E | LOC: 4TH 14:17 ==